=== PATIENT | male | born 1995 | race Caucasian/White ===

== ENCOUNTER 2021-06-24 20:17 | Inpatient (IN) ==
[2021-06-24] MEDS ORDERED: SODIUM CHLORIDE 0.9% 1000ML 1,000 ML IV ONE (20:43)
[2021-06-24] MEDS ORDERED: LORazepam 1 MG/2 ML VIAL IV STA (20:56)
[2021-06-24 21:19] LABS: Basophils # (auto) 0.05 K/uL (0-0.2); Basophils % (auto) 0.4 %; Eosinophils # (auto) 0.01 K/uL (0-0.5); Eosinophils % (auto) 0.1 %; Hematocrit (blood only) 47.7 % (42-52); Hemoglobin 17.1 g/dL (14.0-18.0); Immature Granulocytes # (auto) 0.02 K/uL (0.00-0.02); Immature Granulocytes % (auto) 0.2 %; Lymphocytes # (auto) 2.66 K/uL (1.2-3.4); Lymphocytes % (auto) 23.6 %; Mean Corpuscular Hemoglobin 32.7 pg (25-34); Mean Corpuscular Hgb Conc 35.8 g/dL (32-36); Mean Corpuscular Volume 91.2 fL (80-100); Mean Platelet Volume 9.5 fL (7.4-10.4); Monocytes # (auto) 1.48 K/uL (0.11-0.59); Monocytes % (auto) 13.1 %; Neutrophils # (auto) 7.06 K/uL (1.4-6.5); Neutrophils % (auto) 62.6 %; Platelet Count 359 K/uL (130-400); RDW Coefficient of Variation 12.6 % (11.5-14.5); RDW Standard Deviation 42.5 fL (36.4-46.3); Red Blood Count 5.23 M/uL (4.7-6.1); White Blood Count 11.28 K/uL (4.8-10.8)
[2021-06-24 21:23] LABS: Oxygen Saturation VBG 89.5 %; pH VBG 7.46 (7.36-7.41)
[2021-06-24 21:31] LABS: Appearance Urine Clear (Clear); Bacteria Urine Automated Negative (Negative); Bilirubin Urine Negative (Negative); Blood Urine Negative (Negative); Color Urine Yellow; Epithelial Cell Urine Auto 0-5 /lpf (0-5); Glucose Urine UA Negative (Negative); Ketones Urine 2+ (Negative); Leukocyte Esterase Urine Negative (Negative); Nitrite Urine Negative (Negative); Protein Urine 1+ (Negative); RBC Urine Automated 0-4 /hpf (0-4); Specific Gravity Urine 1.008 (1.000-1.030); Urobilinogen Urine Negative (Negative); WBC Urine Automated 0 /hpf (0-5)
[2021-06-24 21:39] LABS: Albumin Globulin Ratio 1.6 (0.9-2); Albumin Level 5.2 gm/dl (3.4-5.0); BUN Creatinine Ratio 13.6 (10-20); Bilirubin,Total 1.7 mg/dl (0.2-1.0); Calcium 10.3 mg/dl (8.5-10.1); Creatinine Clr Calc Pharmacy 101.8 ml/min; Est GFR (African American) 106.8 ml/min; Est GFR (Non-African American) 92.2 ml/min; Globulin 3.3 gm/dl (2.5-4.0); Potassium 3.5 mmol/L (3.5-5.1); Total Protein 8.5 gm/dl (6.0-8.3)
[2021-06-24 21:46] LABS: Acetaminophen < 3 ug/ml (10-30); Salicylate < 3.0 mg/dl (3.0-30)
[2021-06-24 21:57] LABS: Amphetamines+Metham, Urine Neg (Neg); Barbiturates, Urine Neg (Neg); Benzodiazepine, Urine Neg (Neg); Cocaine, Urine Neg (Neg); MDMA (Ecstacy), Urine Neg (Neg); Methadone, Urine Neg (Neg); Opiate, Urine Neg (Neg); Phencyclidine, Urine Neg (Neg)
--- NOTE | 2021-06-24 22:06 | Emergency Department Note ---
History of Present Illness General Chief complaint: Mental Health Evaluation Stated complaint: MENTAL HEALTH EVAL Time Seen by Provider: 06/24/21 20:32 Source: patient, RN notes reviewed and police History of Present Illness Provider complaint: Mental health evaluation 25-year-old male presents emergency department For mental health evaluation. Patient was brought in by police. Per police the patient has been sleeping outside of a gas station for last 4 days. Staff at the gas station became concerned when he was trying to fill up cups with gasoline. Patient denies any suicidal or homicidal ideations currently. He denies any drug use or alcohol abuse. He denies any trauma. Past Med/Surg History Medical History Anemia Depression No pertinent family history Surgical History No pertinent past surgical history Social History Smoking Status: Current every day smoker Preferred Language: Romansh Feels Safe at Home: Yes Review of Systems Unobtainable due to mental health condition Physical Exam Vital Signs Vital Signs - 24 hr 06/24/21 20:25 06/24/21 21:09 06/24/21 22:40 Temperature 36.9 C Temperature Source Temporal Artery Scan Pulse Rate 130 H Pulse Rate [Left] 113 H Pulse Rhythm [Left] Regular Pulse Strength [Left] Normal Respiratory Rate 16 19 Respiratory Effort / Characteristics Non-Labored Spontaneous Non-Labored Respiratory Depth Normal Normal Respiratory Pattern Regular Regular Blood Pressure 138/95 Blood Pressure [Left Arm] 121/95 Blood Pressure Mean 109 Blood Pressure Mean [Left Arm] 103 Blood Pressure Position [Left Arm] Lying Pulse Oximetry 96 98 Oxygen Delivery Method Room Air Room Air Room Air Sepsis Recent Fever Within 48 Hours No Sepsis New/Unexplained Change in Mental Status N/A Sepsis Action Taken by Nursing No Action Required Physical Exam GENERAL: He is oriented to person, place, and time. He appears well-developed and well-nourished. He does not appear distressed. HENT: Exam performed. - Head: Normocephalic and atraumatic. - Right Ear: External ear normal. No mastoid tenderness. - Left Ear: External ear normal. No mastoid tenderness. - Mouth/Throat: The oropharynx is clear and moist. No trismus in the jaw. No dental abscesses or uvula swelling. No oropharyngeal exudate or tonsillar absces ses. EYES: Conjunctivae and EOM are normal. Pupils are equal, round, and reactive to light. Right eye exhibits no discharge. Left eye exhibits no discharge. No scleral icterus. NECK: Normal range of motion. Neck supple. No JVD present. No spinous process tenderness present. No carotid bruit present. No rigidity. No tracheal deviation and normal range of motion present. No Brudzinski's sign and no Kernig's sign noted. CV: Tachycardic rate, regular rhythm, normal heart sounds and intact distal pul ses. There is no peripheral edema. Palpable radial pulses bue. PULM/CHEST: Effort normal and breath sounds normal. No respiratory distress. No stridor. He has no wheezes. He has no rales. - Chest Wall: He exhibits no tenderness. ABD: The abdomen is soft. Bowel sounds are normal. He has no distension. No mass is present. There is no tenderness. There is no rebound, no guarding, no Montelongo's sign and no tenderness at McBurney's point. Rovsig negative. MUSC/SKEL: Normal range of motion. There is no peripheral edema, tenderness or deformity. LYMPH: No cervical adenopathy. NEURO: He is alert and oriented to person, place, and time. He has normal strength. No cranial nerve deficit or sensory deficit. Coordination and gait normal. GCS eye subscore is 4. GCS verbal subscore is 5. GCS motor subscore is 6. Cerebellar tests wnl. SKIN: Skin is warm and dry. He is not diaphoretic. PSYCH: Tangential thoughts and Pressured speech. No suicidal or homicidal ideation. Course Course 2031: The patient was evaluated in room A8. A complete history and physical exam was performed Cardiac monitoring: An order was placed for continuous cardiac monitoring. The monitor shows a rate of 110 with Sinus tachycardia rhythm 2214: Patient medically cleared. Labs within normal limits imaging within normal limits including CT of the head. Patient placed in observation at this time. 2245: Still awaiting psychiatric evaluation and possible placement. 302 signed by police that brought him in. Case signed out to Dr. Mcleod. Administered Medications Discontinued Medications Sodium Chloride (Nss 1000ml) 1,000 mls @ 999 mls/hr IV .[id number] ONE Stop: 06/24/21 21:43 Last Infusion: 06/24/21 22:21 Dose: 0 mls/hr Documented by: [id number] Admin: 06/24/21 21:18 Dose: 999 mls/hr Documented by: [id number] Lorazepam (Ativan) 1 mg in 2 mls @ 2 mls/min IV NOW STA Stop: 06/24/21 20:57 Last Admin: 06/24/21 21:28 Dose: 2 mls/min Documented by: [id number] Medical Decision Making Laboratory Data Result diagrams: 06/24/21 21:07 06/24/21 21:07 Lab Results 06/24/21 06/24/21 06/24/21 Range/Units 20:35 20:35 21:07 WBC 11.28 H (4.8-10.8) K/uL RBC 5.23 (4.7-6.1) M/uL Hgb 17.1 (14.0-18.0) g/dL Hct 47.7 (42-52) % MCV 91.2 (80-100) fL MCH 32.7 (25-34) pg MCHC 35.8 (32-36) g/dL RDW Std Deviation 42.5 (36.4-46.3) fL RDW Coeff of Dony 12.6 (11.5-14.5) % Plt Count 359 (130-400) K/uL MPV 9.5 (7.4-10.4) fL Immature Gran % (Auto) 0.2 % Neut % (Auto) 62.6 % Lymph % (Auto) 23.6 % [place] % (Auto) 13.1 % Eos % (Auto) 0.1 % Baso % (Auto) 0.4 % Neut # (Auto) 7.06 H (1.4-6.5) K/uL Lymph # (Auto) 2.66 (1.2-3.4) K/uL [place] # (Auto) 1.48 H (0.11-0.59) K/uL Eos # (Auto) 0.01 (0-0.5) K/uL Baso # (Auto) 0.05 (0-0.2) K/uL Immature Gran # (Auto) 0.02 (0.00-0.02) K/uL VBG pH (7.36-7.41) VBG pCO2 (38-50) mmHg VBG pO2 mmHg VBG HCO3 mmol/L VBG O2 Saturation % VBG Base Excess mEq/L Carboxyhemoglobin % THgb Barometric Pressure mm/Hg Sodium (136-145) mmol/L Potassium (3.5-5.1) mmol/L Chloride (98-107) mmol/L Carbon Dioxide (21-32) mmol/L Anion Gap (3-11) BUN (6-23) mg/dl Creatinine (0.6-1.4) mg/dl Est Cr Clr Drug Dosing ml/min Est GFR ( Amer) ml/min Est GFR (Non-Af Amer) ml/min BUN/Creatinine Ratio (10-20) Glucose (70-99(Fasting)) mg/dl Calcium (8.5-10.1) mg/dl Total Bilirubin (0.2-1.0) mg/dl AST (13-39) U/L ALT (7-52) U/L Alkaline Phosphatase (34-104) U/L Total Creatine Kinase (30-223) U/L Total Protein (6.0-8.3) gm/dl Albumin (3.4-5.0) gm/dl Globulin (2.5-4.0) gm/dl Albumin/Globulin Ratio (0.9-2) Lipase (11-82) U/L TSH (0.300-4.500) uIu/ml Urine Color Yellow Urine Appearance Clear (Clear) Urine pH 6.0 (4.5-7.5) Ur Specific [place] 1.008 (1.000-1.030) Urine Protein 1+ H (Negative) Urine Glucose (UA) Negative (Negative) Urine Ketones 2+ H (Negative) Urine Blood Negative (Negative) Urine Nitrite Negative (Negative) Urine Bilirubin Negative (Negative) Urine Urobilinogen Negative (Negative) Ur Leukocyte Esterase Negative (Negative) Urine WBC (Auto) 0 (0-5) /hpf Urine RBC (Auto) 0-4 (0-4) /hpf U Hyaline Cast (Auto) 1-5 (0-5) /lpf U Epithel Cells (Auto) 0-5 (0-5) /lpf Urine Bacteria (Auto) Negative (Negative) Salicylates (3.0-30) mg/dl Urine Opiates Screen Neg (Neg) Ur Methadone, Qual Neg (Neg) Acetaminophen (10-30) ug/ml Urine Barbiturates Neg (Neg) Ur Phencyclidine (PCP) Neg (Neg) U Amphetamin/Meth Scrn Neg (Neg) MDMA (Ecstasy) Screen Neg (Neg) U Benzodiazepines Scrn Neg (Neg) Ur Cocaine Metabolite Neg (Neg) U Marijuana (THC) Screen Pos H (Neg) Ethyl Alcohol mg/dL (<10.0) mg/dl SARS-CoV-2, RNA, NAAT (NEGATIVE) 06/24/21 06/24/21 06/24/21 Range/Units 21:07 21:07 21:07 WBC (4.8-10.8) K/uL RBC (4.7-6.1) M/uL Hgb (14.0-18.0) g/dL Hct (42-52) % MCV (80-100) fL MCH (25-34) pg MCHC (32-36) g/dL RDW Std Deviation (36.4-46.3) fL RDW Coeff of Dony (11.5-14.5) % Plt Count (130-400) K/uL MPV (7.4-10.4) fL Immature Gran % (Auto) % Neut % (Auto) % Lymph % (Auto) % [place] % (Auto) % Eos % (Auto) % Baso % (Auto) % Neut # (Auto) (1.4-6.5) K/uL Lymph # (Auto) (1.2-3.4) K/uL [place] # (Auto) (0.11-0.59) K/uL Eos # (Auto) (0-0.5) K/uL Baso # (Auto) (0-0.2) K/uL Immature Gran # (Auto) (0.00-0.02) K/uL VBG pH 7.46 H (7.36-7.41) VBG pCO2 31 L (38-50) mmHg VBG pO2 53 mmHg VBG HCO3 22 mmol/L VBG O2 Saturation 89.5 % VBG Base Excess -1.0 mEq/L Carboxyhemoglobin % THgb Barometric Pressure 737.0 mm/Hg Sodium 137 (136-145) mmol/L Potassium 3.5 (3.5-5.1) mmol/L Chloride 100 (98-107) mmol/L Carbon Dioxide 21 (21-32) mmol/L Anion Gap 16 H (3-11) BUN 15 (6-23) mg/dl Creatinine 1.10 (0.6-1.4) mg/dl Est Cr Clr Drug Dosing 101.8 ml/min Est GFR ( Amer) 106.8 ml/min Est GFR (Non-Af Amer) 92.2 ml/min BUN/Creatinine Ratio 13.6 (10-20) Glucose 89 (70-99(Fasting)) mg/dl Calcium 10.3 H (8.5-10.1) mg/dl Total Bilirubin 1.7 H (0.2-1.0) mg/dl AST 33 (13-39) U/L ALT 24 (7-52) U/L Alkaline Phosphatase 56 (34-104) U/L Total Creatine Kinase 600 H (30-223) U/L Total Protein 8.5 H (6.0-8.3) gm/dl Albumin 5.2 H (3.4-5.0) gm/dl Globulin 3.3 (2.5-4.0) gm/dl Albumin/Globulin Ratio 1.6 (0.9-2) Lipase 6 L (11-82) U/L TSH (0.300-4.500) uIu/ml Urine Color Urine Appearance (Clear) Urine pH (4.5-7.5) Ur Specific [place] (1.000-1.030) Urine Protein (Negative) Urine Glucose (UA) (Negative) Urine Ketones (Negative) Urine Blood (Negative) Urine Nitrite (Negative) Urine Bilirubin (Negative) Urine Urobilinogen (Negative) Ur Leukocyte Esterase (Negative) Urine WBC (Auto) (0-5) /hpf Urine RBC (Auto) (0-4) /hpf U Hyaline Cast (Auto) (0-5) /lpf U Epithel Cells (Auto) (0-5) /lpf Urine Bacteria (Auto) (Negative) Salicylates (3.0-30) mg/dl Urine Opiates Screen (Neg) Ur Methadone, Qual (Neg) Acetaminophen (10-30) ug/ml Urine Barbiturates (Neg) Ur Phencyclidine (PCP) (Neg) U Amphetamin/Meth Scrn (Neg) MDMA (Ecstasy) Screen (Neg) U Benzodiazepines Scrn (Neg) Ur Cocaine Metabolite (Neg) U Marijuana (THC) Screen (Neg) Ethyl Alcohol mg/dL < 10.0 (<10.0) mg/dl SARS-CoV-2, RNA, NAAT (NEGATIVE) 06/24/21 06/24/21 06/24/21 Range/Units 21:07 21:08 21:08 WBC (4.8-10.8) K/uL RBC (4.7-6.1) M/uL Hgb (14.0-18.0) g/dL Hct (42-52) % MCV (80-100) fL MCH (25-34) pg MCHC (32-36) g/dL RDW Std Deviation (36.4-46.3) fL RDW Coeff of Dony (11.5-14.5) % Plt Count (130-400) K/uL MPV (7.4-10.4) fL Immature Gran % (Auto) % Neut % (Auto) % Lymph % (Auto) % [place] % (Auto) % Eos % (Auto) % Baso % (Auto) % Neut # (Auto) (1.4-6.5) K/uL Lymph # (Auto) (1.2-3.4) K/uL [place] # (Auto) (0.11-0.59) K/uL Eos # (Auto) (0-0.5) K/uL Baso # (Auto) (0-0.2) K/uL Immature Gran # (Auto) (0.00-0.02) K/uL VBG pH (7.36-7.41) VBG pCO2 (38-50) mmHg VBG pO2 mmHg VBG HCO3 mmol/L VBG O2 Saturation % VBG Base Excess mEq/L Carboxyhemoglobin 0.0 % THgb Barometric Pressure mm/Hg Sodium (136-145) mmol/L Potassium (3.5-5.1) mmol/L Chloride (98-107) mmol/L Carbon Dioxide (21-32) mmol/L Anion Gap (3-11) BUN (6-23) mg/dl Creatinine (0.6-1.4) mg/dl Est Cr Clr Drug Dosing ml/min Est GFR ( Amer) ml/min Est GFR (Non-Af Amer) ml/min BUN/Creatinine Ratio (10-20) Glucose (70-99(Fasting)) mg/dl Calcium (8.5-10.1) mg/dl Total Bilirubin (0.2-1.0) mg/dl AST (13-39) U/L ALT (7-52) U/L Alkaline Phosphatase (34-104) U/L Total Creatine Kinase (30-223) U/L Total Protein (6.0-8.3) gm/dl Albumin (3.4-5.0) gm/dl Globulin (2.5-4.0) gm/dl Albumin/Globulin Ratio (0.9-2) Lipase (11-82) U/L TSH 1.325 (0.300-4.500) uIu/ml Urine Color Urine Appearance (Clear) Urine pH (4.5-7.5) Ur Specific [place] (1.000-1.030) Urine Protein (Negative) Urine Glucose (UA) (Negative) Urine Ketones (Negative) Urine Blood (Negative) Urine Nitrite (Negative) Urine Bilirubin (Negative) Urine Urobilinogen (Negative) Ur Leukocyte Esterase (Negative) Urine WBC (Auto) (0-5) /hpf Urine RBC (Auto) (0-4) /hpf U Hyaline Cast (Auto) (0-5) /lpf U Epithel Cells (Auto) (0-5) /lpf Urine Bacteria (Auto) (Negative) Salicylates < 3.0 L (3.0-30) mg/dl Urine Opiates Screen (Neg) Ur Methadone, Qual (Neg) Acetaminophen < 3 L (10-30) ug/ml Urine Barbiturates (Neg) Ur Phencyclidine (PCP) (Neg) U Amphetamin/Meth Scrn (Neg) MDMA (Ecstasy) Screen (Neg) U Benzodiazepines Scrn (Neg) Ur Cocaine Metabolite (Neg) U Marijuana (THC) Screen (Neg) Ethyl Alcohol mg/dL (<10.0) mg/dl SARS-CoV-2, RNA, NAAT (NEGATIVE) 06/24/21 Range/Units Unknown WBC (4.8-10.8) K/uL RBC (4.7-6.1) M/uL Hgb (14.0-18.0) g/dL Hct (42-52) % MCV (80-100) fL MCH (25-34) pg MCHC (32-36) g/dL RDW Std Deviation (36.4-46.3) fL RDW Coeff of Dony (11.5-14.5) % Plt Count (130-400) K/uL MPV (7.4-10.4) fL Immature Gran % (Auto) % Neut % (Auto) % Lymph % (Auto) % [place] % (Auto) % Eos % (Auto) % Baso % (Auto) % Neut # (Auto) (1.4-6.5) K/uL Lymph # (Auto) (1.2-3.4) K/uL [place] # (Auto) (0.11-0.59) K/uL Eos # (Auto) (0-0.5) K/uL Baso # (Auto) (0-0.2) K/uL Immature Gran # (Auto) (0.00-0.02) K/uL VBG pH (7.36-7.41) VBG pCO2 (38-50) mmHg VBG pO2 mmHg VBG HCO3 mmol/L VBG O2 Saturation % VBG Base Excess mEq/L Carboxyhemoglobin % THgb Barometric Pressure mm/Hg Sodium (136-145) mmol/L Potassium (3.5-5.1) mmol/L Chloride (98-107) mmol/L Carbon Dioxide (21-32) mmol/L Anion Gap (3-11) BUN (6-23) mg/dl Creatinine (0.6-1.4) mg/dl Est Cr Clr Drug Dosing ml/min Est GFR ( Amer) ml/min Est GFR (Non-Af Amer) ml/min BUN/Creatinine Ratio (10-20) Glucose (70-99(Fasting)) mg/dl Calcium (8.5-10.1) mg/dl Total Bilirubin (0.2-1.0) mg/dl AST (13-39) U/L ALT (7-52) U/L Alkaline Phosphatase (34-104) U/L Total Creatine Kinase (30-223) U/L Total Protein (6.0-8.3) gm/dl Albumin (3.4-5.0) gm/dl Globulin (2.5-4.0) gm/dl Albumin/Globulin Ratio (0.9-2) Lipase (11-82) U/L TSH (0.300-4.500) uIu/ml Urine Color Urine Appearance (Clear) Urine pH (4.5-7.5) Ur Specific [place] (1.000-1.030) Urine Protein (Negative) Urine Glucose (UA) (Negative) Urine Ketones (Negative) Urine Blood (Negative) Urine Nitrite (Negative) Urine Bilirubin (Negative) Urine Urobilinogen (Negative) Ur Leukocyte Esterase (Negative) Urine WBC (Auto) (0-5) /hpf Urine RBC (Auto) (0-4) /hpf U Hyaline Cast (Auto) (0-5) /lpf U Epithel Cells (Auto) (0-5) /lpf Urine Bacteria (Auto) (Negative) Salicylates (3.0-30) mg/dl Urine Opiates Screen (Neg) Ur Methadone, Qual (Neg) Acetaminophen (10-30) ug/ml Urine Barbiturates (Neg) Ur Phencyclidine (PCP) (Neg) U Amphetamin/Meth Scrn (Neg) MDMA (Ecstasy) Screen (Neg) U Benzodiazepines Scrn (Neg) Ur Cocaine Metabolite (Neg) U Marijuana (THC) Screen (Neg) Ethyl Alcohol mg/dL (<10.0) mg/dl SARS-CoV-2, RNA, NAAT NEGATIVE (NEGATIVE) Imaging Data My Impression: Chest x-ray negative. Airway clear. No pneumothorax. No consolidation. No cardiomegaly or cephalization.. No free air under the diaphragm. No fractures of the skeletal structures. Radiologist's Impression: Preliminary Findings Only See Final Report For Complete Findings CT HEAD: No acute intracranial abnormality identified. Radiologist: Keven Neil M.D. Study ready at 21:46 and initial results transmitted at 22:05 ECG Data Indication: + altered mental status Rate (beats per minute): 113 Rhythm: + sinus tachycardia ECG Intervals/blocks: + Normal QRS, + Normal MS and + Normal QT-c ECG ST segments: + Normal ST segments MDM Narrative Observation note Indication: Psych eval/placement Patient, with depression was first seen at 2032 hrs and the observation time began at 2215 hrs and was necessary in order to have psych evaluation completed . Impression & Plan Altered mental status Discharge Plan Visit Data Chief Complaint: Mental Health Evaluation Stated Complaint: MENTAL HEALTH EVAL Discharge Problem: Altered mental status Patient Disposition: Still a Patient Forms Stand Alone Forms: [facility], Suicide Prevention Resources Referrals Referrals: PCP,NO [Primary Care Provider] -
--- NOTE | 2021-06-25 01:02 | Emergency Department Note ---
ED Visit Note Patient was signed out to me by Dr. Sahu at 2300, he is pending placement for inpatient psychiatric care for erratic behavior, likely homelessness, inability to care for self, 302 was filed by police. Patient has not required any acute interventions during my shift. Case was signed out to Dr. Leija at the end of my shift pending ongoing bed search/placement. . : Altered mental status Qualifiers: Altered mental status type: unspecified Qualified Code(s): R41.82 - Altered mental status, unspecified
--- NOTE | 2021-06-25 02:51 | Emergency Department Note ---
ED Visit Note This case was signed out to me at change of shift. The patient is here on a 302. He has not slept for days and received Ativan. He has been difficult to arouse and has not yet been assessed by the ED psychiatric outsole caser. He continues to sleep overnight and remains hemodynamically stable. He will need assessed in the morning by the ED psychiatric outsole caser. The case will be signed out to Dr. Mcarthur at shift change. . : Altered mental status Qualifiers: Altered mental status type: unspecified Qualified Code(s): R41.82 - Altered mental status, unspecified
[2021-06-25] MEDS ORDERED: NICOTINE POLACRILEX 2 MG GUM MT ONE (07:09)
--- NOTE | 2021-06-25 07:21 | CT Scan Report ---
CT SCAN OF THE BRAIN WITHOUT IV CONTRAST CLINICAL HISTORY: Change in mental status. COMPARISON STUDY: No priors. TECHNIQUE: Unenhanced axial CT scan of the brain is performed from the vertex to the skull base. A d ose lowering technique was utilized adhering to the principles of ALARA. The patient was scanned twic e due to motion artifact. CT DOSE: 1228.53 mGy.cm FINDINGS: Brain parenchyma: The brain parenchyma is normal in appearance. There is no hemorrhage, mass effect, or evidence of acute territorial ischemia by CT criteria. Hill-white matter differentiation is preser nabor. No extra-axial fluid collection is seen. Ventricles, sulci, cisterns: Normal in configuration. Intracranial vasculature: The visualized intracranial vasculature at the skull base is normal in appe arance. Calvarium: Unremarkable. Sinuses and mastoids: The visualized paranasal sinuses are clear. The mastoid air cells are well pneu matized. Orbits: The bony orbits are grossly intact. IMPRESSION: No acute intracranial abnormality is identified. ACT 112: Negative or not required by law. Electronically signed by: Zak Rodriguez M.D. 06/25/2021 7:20 AM
--- NOTE | 2021-06-25 07:29 | Emergency Department Note ---
ED Visit Note Received this patient in signout. See prior notes for full details. Patient evidently had been staying outside of a gas station originally from the [place] area and began to exhibit some odd behavior. Evidently there are some concerns he was trying to fill up bottles/cups with gasoline. Police were involved and he was brought here for further evaluation. A 302 box B commitment form has been completed for the patient. Patient slept throughout the night after receiving some Ativan. Patient in room awake this morning coloring. Evidently told the rn field case manager that he has an illness inside of him that he is performing surgery on himself to try to remove. Has disorganized thoughts and appears to be somewhat responding to external stimuli in the room. Again very disorganized. Occasionally burst out in tears for me. Discussed with him utilizing medication such as Ativan or antipsychotic such as Zyprexa to help with some symptoms but he declined at this time as he states he does not want a be "tranquilizer ". Patient is being assessed this morning by our psychiatric rn field case manager with bed search to begin. Patient accepted 3 S. for further inpatient care. . : Altered mental status Qualifiers: Altered mental status type: unspecified Qualified Code(s): R41.82 - Altered mental status, unspecified
--- NOTE | 2021-06-25 07:44 | XRay Report ---
SINGLE VIEW CHEST CLINICAL HISTORY: Change in mental status. FINDINGS: An AP, portable, upright chest radiograph is obtained. No prior studies are available for c omparison at the time of dictation. The cardiomediastinal silhouette is unremarkable. There is mild bibasilar atelectasis. The lungs and pleural spaces are otherwise clear. No pneumothorax is seen. The bony thorax is grossly intact. IMPRESSION: No active disease in the chest. ACT 112: Negative or not required by law. Electronically signed by: Zak Rodriguez M.D. 06/25/2021 7:42 AM
[2021-06-25] MEDS ORDERED: hydrOXYzine HCl 25 MG TAB PO PRN ×2 (10:23)
[2021-06-25] MEDS ORDERED: BISMUTH SUBSALICYLATE LIQD 236 ML PO PRN (10:23)
[2021-06-25] MEDS ORDERED: ACETAMINOPHEN 325 MG TAB PO PRN (10:23)
[2021-06-25] MEDS ORDERED: MAGNESIUM HYDROXIDE SUSP 30 ML UDC PO PRN (10:23)
[2021-06-25] MEDS ORDERED: ALUMINUM/MAGNESIUM SUSP 30 ML UDC PO PRN (10:23)
[2021-06-25] MEDS ORDERED: SODIUM CHLORIDE 0.65% NA SOLN 45 ML (OCEAN) PRN (10:23)
[2021-06-25] MEDS ORDERED: BENZTROPINE MESYLATE 1 MG TAB PO PRN (10:25)
[2021-06-25] MEDS: haloperidoL 5 MG TAB PO PRN ×2 (11:32→17:21)
[2021-06-25] MEDS: LORazepam 1 MG TAB PO PRN ×2 (11:32→17:21)
--- NOTE | 2021-06-25 12:28 | History & Physical ---
Date of Service June 25, 2021 Impression / Recommendations Impression 25 yo male, very limited historian admit for disorganized/bizarre behavior while living out of his car at a local gas station. He presents as paranoid and likely hallucinating and is +for MJ. (1) Psychotic disorder: The patient was admitted to the [facility] ([facility] unit) on q15 min checks (behavioral with suicide precautions) for safety. The patient will participate in group, recreational, and milieu therapies and will be offered additional individual and family sessions as clinically appropriate. A MNPR is required given his level of paranoia and disorganization. Prn Haldol 5 mg and Ativan 1 mg are ordered and I am petitioning for a 303 hearing tomorrow as it is anticipated that he will require medications over objection if doesn't accept PO. Will offer Zyprexa zydus 10 mg this pm. He is not able to understand risks/benefits at this time. Will attempt fasting metabolic labs in the am. Inventory Assets Strengths: cannot assess, has a car and may be college educated Needs: increase insight into condition, outpatient providers and likely REZA. Risk Factors Assessment Male: Yes : No Do You Have Access To A Gun?: No (belongings secured by police) Protective Factors Assessment : No Responsible for Young Children: No Employed: No Psychiatric History Identifying Data MAK BANKS is a 25-year-old M reportedly from [place], [place], very poor historian due to disorganized psychosis, and was admitted on 06/25/21 10:23 on a 302 involuntary commitment. Chief Complaint laughing inappropriately at tea packets History of Present Illness The patient presented to the ED with tangential thoughts alternating with tearfulness and anxiety. He is not able to answer now as decompensated on transition to the unit, paranoid and refusing questions, took Haldol and Ativan with much prompting. He reported driving around the country between [place] and [place]. He has been living out of his car and sleeping at gas stations. He appeared to be responding to internal stimuli, looking off to the side while talking. Police were called to a convenience store in [place] as attempting to take drinks from the gas station to fill them up to gasoline. In the ED he would pace and point to the floor. He apparently endorsed being in [place] and [place]. He was somewhat grandiose talking about seeking a masters degrees at [employer]. He endorsed decreased appetite and poor sleep. It is unclear if he is having true anxiety or just experiencing restlessness. Urine tox was positive for MJ and he may have used other substances 5 years ago. Past Psychiatric History Current Psychiatric Diagnosis: Psychotic Disorder Outpatient Services: no known Do You Have Access To A Gun?: No (belongings secured by police) Describe Attempts in the Past: Became tearful when asked, but would not discuss further Past Medication Trials: unclear Allergies Allergy/AdvReac Type Severity Reaction Status Date / Time No Known Allergies Allergy Unverified 06/25/21 07:51 Home Medications Medication Instructions Recorded Confirmed Type No Known Home Medications 06/25/21 06/25/21 History Family History Family History of: Doesn't Know Alcohol History Hx of Alcohol Use Over the Past 12 Months: No Smoking Use Have You Smoked or Used Tobacco Products in the Last 30 Days: Yes tobacco type: cigarettes Smoking Status: Light tobacco smoker Smoking packs per day: 0 Substance History Hx of Prescription Med Misuse Over the Past 12 Months: No Hx of Over the Counter Med Misuse Over the Past 12 Months: No Hx of Inhalent Misuse Over the Past 12 Months: No Hx of Organic Substance Use Over the Past 12 Months: No (Hx of experiementing, would not discuss further) Hx of Illegal Substances/Street Drug Use Over Past 12 Months: No (Hx of experiementing, would not discuss further) Problems as a Result of Past Substance Use: None Identified Problems as a Result of Past Substance Use Comments: Police report drug offenses, but no longer in police custody Personal History Living Arrangements: Homeless Highest Grade Completed: College (reportedly a BS in environmental science) Highest Grade Completed Comment: Unknown Employment Status: Unemployed Marital Status: Single Number Of Children: Unknown Beliefs That Will Affect Care: None Legal Problems Comment: Unknown - police upon drop off in the ED report hx of drug offenses Patient History Medical History Anemia Depression No pertinent family history Surgical History No pertinent past surgical history Social History Smoking Status: Light tobacco smoker Preferred Language: Tamazight Communication Ability: Effective Gaming Surveillance Observer Required: No Beliefs That Will Affect Care: None Feels Safe at Home: Yes Assistive Devices: None Review of Systems Review of Systems: Unobtainable due to cognitive status Physical Exam Psychiatric: Orientation: alert, oriented to person and + guarded Eye Contact: + poor eye contact Motor Behavior: no abnormal motor movements Speech: + abnormal rate/rhythm/volume of speech Affect: + labile affect Mood: + anxious mood and + irritable mood Thought Process: + tangential thought process and + incoherent thought process Thought Content: + paranoid won't answer won't answer unclear if responding to internal stimuli Cognition: + recent memory not intact and + attention not intact Insight: + severely impaired insight Judgement: + severely impaired judgement Vital Signs (Past 24 Hours): Last Vital Signs Temp 36.9 C 06/24/21 20:25 Pulse 132 H 06/25/21 07:17 Resp 20 06/25/21 07:17 BP 119/96 06/25/21 07:17 Pulse Ox 96 06/25/21 07:17 Exam Statement: A physical exam was performed in the ED by Dr. Sahu for the purposes of medical clearance. I accept that physical as correct and adequate for the purposes of the inpatient physical exam. Results & Data ([facility]) Laboratory Results Laboratory Results - last 24 hr 06/24/21 06/24/21 06/24/21 20:35 20:35 20:35 WBC RBC Hgb Hct MCV MCH MCHC RDW Std Deviation RDW Coeff of Dony Plt Count MPV Immature Gran % (Auto) Neut % (Auto) Lymph % (Auto) [place] % (Auto) Eos % (Auto) Baso % (Auto) Neut # (Auto) Lymph # (Auto) [place] # (Auto) Eos # (Auto) Baso # (Auto) Immature Gran # (Auto) VBG pH VBG pCO2 VBG pO2 VBG HCO3 VBG O2 Saturation VBG Base Excess Carboxyhemoglobin Barometric Pressure Sodium Potassium Chloride Carbon Dioxide Anion Gap BUN Creatinine Est Cr Clr Drug Dosing Est GFR ( Amer) Est GFR (Non-Af Amer) BUN/Creatinine Ratio Glucose Calcium Total Bilirubin AST ALT Alkaline Phosphatase Total Creatine Kinase Total Protein Albumin Globulin Albumin/Globulin Ratio Lipase TSH Urine Color Yellow Urine Appearance Clear Urine pH 6.0 Ur Specific Crane 1.008 Urine Protein 1+ H Urine Glucose (UA) Negative Urine Ketones 2+ H Urine Blood Negative Urine Nitrite Negative Urine Bilirubin Negative Urine Urobilinogen Negative Ur Leukocyte Esterase Negative Urine WBC (Auto) 0 Urine RBC (Auto) 0-4 U Hyaline Cast (Auto) 1-5 U Epithel Cells (Auto) 0-5 Urine Bacteria (Auto) Negative Salicylates Urine Opiates Screen Neg Ur Methadone, Qual Neg Acetaminophen Urine Barbiturates Neg Ur Phencyclidine (PCP) Neg U Amphetamin/Meth Scrn Neg MDMA (Ecstasy) Screen Neg U Benzodiazepines Scrn Neg Ur Cocaine Metabolite Neg U Marijuana (THC) Screen Pos H U Marijuana THC Carboxy Pending Drug Screen Comment Pending Ethyl Alcohol mg/dL SARS-CoV-2, RNA, NAAT 06/24/21 06/24/21 06/24/21 21:07 21:07 21:07 WBC 11.28 H RBC 5.23 Hgb 17.1 Hct 47.7 MCV 91.2 MCH 32.7 MCHC 35.8 RDW Std Deviation 42.5 RDW Coeff of Dony 12.6 Plt Count 359 MPV 9.5 Immature Gran % (Auto) 0.2 Neut % (Auto) 62.6 Lymph % (Auto) 23.6 [place] % (Auto) 13.1 Eos % (Auto) 0.1 Baso % (Auto) 0.4 Neut # (Auto) 7.06 H Lymph # (Auto) 2.66 [place] # (Auto) 1.48 H Eos # (Auto) 0.01 Baso # (Auto) 0.05 Immature Gran # (Auto) 0.02 VBG pH VBG pCO2 VBG pO2 VBG HCO3 VBG O2 Saturation VBG Base Excess Carboxyhemoglobin Barometric Pressure Sodium 137 Potassium 3.5 Chloride 100 Carbon Dioxide 21 Anion Gap 16 H BUN 15 Creatinine 1.10 Est Cr Clr Drug Dosing 101.8 Est GFR ( Amer) 106.8 Est GFR (Non-Af Amer) 92.2 BUN/Creatinine Ratio 13.6 Glucose 89 Calcium 10.3 H Total Bilirubin 1.7 H AST 33 ALT 24 Alkaline Phosphatase 56 Total Creatine Kinase 600 H Total Protein 8.5 H Albumin 5.2 H Globulin 3.3 Albumin/Globulin Ratio 1.6 Lipase 6 L TSH Urine Color Urine Appearance Urine pH Ur Specific [place]ane Urine Protein Urine Glucose (UA) Urine Ketones Urine Blood Urine Nitrite Urine Bilirubin Urine Urobilinogen Ur Leukocyte Esterase Urine WBC (Auto) Urine RBC (Auto) U Hyaline Cast (Auto) U Epithel Cells (Auto) Urine Bacteria (Auto) Salicylates Urine Opiates Screen Ur Methadone, Qual Acetaminophen Urine Barbiturates Ur Phencyclidine (PCP) U Amphetamin/Meth Scrn MDMA (Ecstasy) Screen U Benzodiazepines Scrn Ur Cocaine Metabolite U Marijuana (THC) Screen U Marijuana THC Carboxy Drug Screen Comment Ethyl Alcohol mg/dL < 10.0 SARS-CoV-2, RNA, NAAT 06/24/21 06/24/21 06/24/21 21:07 21:07 21:08 WBC RBC Hgb Hct MCV MCH MCHC RDW Std Deviation RDW Coeff of Dony Plt Count MPV Immature Gran % (Auto) Neut % (Auto) Lymph % (Auto) [place] % (Auto) Eos % (Auto) Baso % (Auto) Neut # (Auto) Lymph # (Auto) [place] # (Auto) Eos # (Auto) Baso # (Auto) Immature Gran # (Auto) VBG pH 7.46 H VBG pCO2 31 L VBG pO2 53 VBG HCO3 22 VBG O2 Saturation 89.5 VBG Base Excess -1.0 Carboxyhemoglobin 0.0 Barometric Pressure 737.0 Sodium Potassium Chloride Carbon Dioxide Anion Gap BUN Creatinine Est Cr Clr Drug Dosing Est GFR ( Amer) Est GFR (Non-Af Amer) BUN/Creatinine Ratio Glucose Calcium Total Bilirubin AST ALT Alkaline Phosphatase Total Creatine Kinase Total Protein Albumin Globulin Albumin/Globulin Ratio Lipase TSH 1.325 Urine Color Urine Appearance Urine pH Ur Specific Crane Urine Protein Urine Glucose (UA) Urine Ketones Urine Blood Urine Nitrite Urine Bilirubin Urine Urobilinogen Ur Leukocyte Esterase Urine WBC (Auto) Urine RBC (Auto) U Hyaline Cast (Auto) U Epithel Cells (Auto) Urine Bacteria (Auto) Salicylates Urine Opiates Screen Ur Methadone, Qual Acetaminophen Urine Barbiturates Ur Phencyclidine (PCP) U Amphetamin/Meth Scrn MDMA (Ecstasy) Screen U Benzodiazepines Scrn Ur Cocaine Metabolite U Marijuana (THC) Screen U Marijuana THC Carboxy Drug Screen Comment Ethyl Alcohol mg/dL SARS-CoV-2, RNA, NAAT 06/24/21 06/24/21 21:08 Unknown WBC RBC Hgb Hct MCV MCH MCHC RDW Std Deviation RDW Coeff of Dony Plt Count MPV Immature Gran % (Auto) Neut % (Auto) Lymph % (Auto) [place] % (Auto) Eos % (Auto) Baso % (Auto) Neut # (Auto) Lymph # (Auto) [place] # (Auto) Eos # (Auto) Baso # (Auto) Immature Gran # (Auto) VBG pH VBG pCO2 VBG pO2 VBG HCO3 VBG O2 Saturation VBG Base Excess Carboxyhemoglobin Barometric Pressure Sodium Potassium Chloride Carbon Dioxide Anion Gap BUN Creatinine Est Cr Clr Drug Dosing Est GFR ( Amer) Est GFR (Non-Af Amer) BUN/Creatinine Ratio Glucose Calcium Total Bilirubin AST ALT Alkaline Phosphatase Total Creatine Kinase Total Protein Albumin Globulin Albumin/Globulin Ratio Lipase TSH Urine Color Urine Appearance Urine pH Ur Specific [place]ane Urine Protein Urine Glucose (UA) Urine Ketones Urine Blood Urine Nitrite Urine Bilirubin Urine Urobilinogen Ur Leukocyte Esterase Urine WBC (Auto) Urine RBC (Auto) U Hyaline Cast (Auto) U Epithel Cells (Auto) Urine Bacteria (Auto) Salicylates < 3.0 L Urine Opiates Screen Ur Methadone, Qual Acetaminophen < 3 L Urine Barbiturates Ur Phencyclidine (PCP) U Amphetamin/Meth Scrn MDMA (Ecstasy) Screen U Benzodiazepines Scrn Ur Cocaine Metabolite U Marijuana (THC) Screen U Marijuana THC Carboxy Drug Screen Comment Ethyl Alcohol mg/dL SARS-CoV-2, RNA, NAAT NEGATIVE Current Inpatient Medications Current Inpatient Medications: Current Inpatient Medications Acetaminophen (Acetaminophen 325 Mg Tab) 650 mg PO Q4H PRN PRN Reason: Headache or Minor Fever Stop: 07/25/21 10:22 Al Hydrox/Mg Hydrox/Simethicone (Aluminum/Magnesium Susp 30 Ml Udc) 30 ml PO Q4H PRN PRN Reason: GI Upset Stop: 07/25/21 10:22 Benztropine Mesylate (Benztropine Mesylate 1 Mg Tab) 1 mg PO Q6 PRN PRN Reason: EPS Stop: 07/25/21 10:24 Bismuth Subsalicylate (Bismuth Subsalicylate Liqd 236 Ml) 15 ml PO PRN PRN PRN Reason: Loose Stool Stop: 07/25/21 10:22 Haloperidol (Haloperidol 5 Mg Tab) 5 mg PO Q6 PRN PRN Reason: Anxiety/Agitation Stop: 07/25/21 10:24 Last Admin: 06/25/21 11:32 Dose: 5 mg Documented by: Hydroxyzine HCl (Hydroxyzine Hcl 25 Mg Tab) 50 mg PO HSZ PRN PRN Reason: Insomnia Stop: 07/25/21 10:22 Hydroxyzine HCl (Hydroxyzine Hcl 25 Mg Tab) 25 mg PO Q4H PRN PRN Reason: Anxiety Stop: 07/25/21 10:22 Lorazepam (Lorazepam 1 Mg Tab) 1 mg PO Q6 PRN PRN Reason: Anxiety/Agitation Stop: 07/25/21 10:24 Last Admin: 06/25/21 11:32 Dose: 1 mg Documented by: Magnesium Hydroxide (Magnesium Hydroxide Susp 30 Ml Udc) 30 ml PO DAILY PRN PRN Reason: Constipation Stop: 07/25/21 10:22 Sodium Chloride (Sodium Chloride 0.65% Na Soln 45 Ml ([place])) 1 - 2 sprays NA PRN PRN PRN Reason: Nasal Dryness/Congestion Stop: 07/25/21 10:22
[2021-06-25] MEDS ORDERED: LORazepam 2 MG/ML VIAL (IM USE) IM PRN (15:31)
[2021-06-25] MEDS ORDERED: BENZTROPINE MESYLATE 1 MG/ML 2 ML AMP IM PRN (15:31)
[2021-06-25] MEDS ORDERED: HALOPERIDOL LACTATE 5 MG/ML 1 ML VIAL IM PRN (15:31)
--- NOTE | 2021-06-25 22:25 | Electrocardiogram Report ---
Test Reason : Blood Pressure : / mmHG Vent. Rate : 113 BPM Atrial Rate : 113 BPM P-R Int : 114 ms QRS Dur : 084 ms QT Int : 312 ms P-R-T Axes : 031 003 045 degrees QTc Int : 427 ms Poor data quality, interpretation may be adversely affected Sinus tachycardia Possible Left atrial enlargement RSR' or QR pattern in V1 suggests right ventricular conduction delay No previous ECGs available Confirmed by Aydin Stapleton ([id number]) on 06/25/2021 10:25:37 PM Referred By: REFERRED SELF Confirmed By:Aydin Stapleton
[2021-06-26] MEDS: LORazepam 1 MG TAB PO PRN ×2 (11:14→18:19)
[2021-06-26] MEDS: haloperidoL 5 MG TAB PO PRN ×2 (11:14→18:19)
--- NOTE | 2021-06-26 13:03 | Psychiatric Progress Note ---
Date of Service June 26, 2021 Impression / Recommendations Impression 25 yo male, very limited historian admit for disorganized/bizarre behavior while living out of his car [place] local gas station. He presents as paranoid and likely hallucinating and tested +for MJ. He has a hx of depression and drug use with subsequent psychotic symptoms in the past per mother. 06/26/21--improving (1) Psychotic disorder: 06/26/21: continue Zyprexa trial with prns as ordered as significant improvement within 24 hours on medication. >35 min spent in testimony for 303 hearing/prep aside from his examination and coordination with treatment team. It is my opinion that if he were to refuse medications they should be given over objection as without treatment for his psychotic illness he is at significant risk of or serious disability within the next [address] Lemons to provide second opinion if needed. 06/25/21: The patient was admitted to the [facility] ([facility] mental health unit) on q15 min checks (behavioral with suicide precautions) for safety. The patient will participate in group, recreational, and milieu therapies and will be offered additional individual and family sessions as clinically appropriate. A MNPR is required given his level of paranoia and disorganization. Prn Haldol 5 mg and Ativan 1 mg are ordered and I am petitioning for a 303 hearing tomorrow as it is anticipated that he will require medications over objection if doesn't accept PO. Will offer Zyprexa zydus 10 mg this pm. He is not able to understand risks/benefits at this time. Will attempt fasting metabolic labs in the am. Inventory Assets Strengths: cannot assess, has a car and may be college educated Needs: increase insight into condition, outpatient providers and likely REZA. Risk Factors Assessment Male: Yes : No Do You Have Access To A Gun?: No (belongings secured by police) Protective Factors Assessment : No Responsible for Young Children: No Employed: No Interval History Identifying Information MAK BANKS is a 25-year-old M reportedly from [place], [place], very poor historian due to disorganized psychosis, and was admitted on 06/25/21 10:23 on a 302 involuntary commitment. 303 granted 06/26/21. Chief Complaint "I guess I'll listen in"--referring to his hearing Review of Systems Sleep Information Total Hours of Sleep: 6.5 Sleep Comments: pt on q-15 minute checks Meal Information Percent Meal Consumed - Lunch: 0 Percent Meal Consumed - Dinner: 25 Subjective Subjective Patient was seen & assessed and interval progress reviewed with treatment team. The patient ate 25% of 1 meal yesterday, accepted 2 doses of Haldol/Ativan prn and was compliant with hs Zyprexa as ordered. He slept and had to be awakened for examination prior to hearing. He continues with thought blocking but did allow staff to contact his mother who was thankful he was safe as no contact since he left her home in [place] in early May. He reportedly told staff he came to [place] as has "magda" in the name which is similar to [place] where his mother is from (Mother is [place]). 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 He has gone from non sensical in conversation to being able to go to brief groups and rate mood. Physical Exam Psychiatric Orientation: alert, oriented to person and + guarded Eye Contact: + poor eye contact Motor Behavior: no abnormal motor movements Speech: + abnormal rate/rhythm/volume of speech Affect: + blunted affect Mood: no anxious mood and no irritable mood Thought Process: + thought blocking and + tangential thought process Thought Content: + paranoid Cognition: + recent memory not intact and + attention not intact Insight: + severely impaired insight Judgement: + severely impaired judgement Vital Signs (Past 24 Hours) Last Vital Signs Temp 36.4 C L 06/26/21 06:28 Pulse 117 H 06/26/21 06:28 Resp 16 06/26/21 06:28 BP 116/66 06/26/21 06:28 Pulse Ox 96 06/25/21 07:17 Results & Data ([facility]) Current Inpatient Medications Current Inpatient Medications: Current Inpatient Medications Acetaminophen (Acetaminophen 325 Mg Tab) 650 mg PO Q4H PRN PRN Reason: Headache or Minor Fever Stop: 07/25/21 10:22 Al Hydrox/Mg Hydrox/Simethicone (Aluminum/Magnesium Susp 30 Ml Udc) 30 ml PO Q4H PRN PRN Reason: GI Upset Stop: 07/25/21 10:22 Benztropine Mesylate (Benztropine Mesylate 1 Mg Tab) 1 mg PO Q6 PRN PRN Reason: EPS Stop: 07/25/21 10:24 Benztropine Mesylate (Benztropine Mesylate 1 Mg/Ml 2 Ml Amp) 1 mg IM Q6 PRN PRN Reason: with Haldol IM Stop: 07/25/21 15:30 Bismuth Subsalicylate (Bismuth Subsalicylate Liqd 236 Ml) 15 ml PO PRN PRN PRN Reason: Loose Stool Stop: 07/25/21 10:22 Haloperidol (Haloperidol 5 Mg Tab) 5 mg PO Q6 PRN PRN Reason: Anxiety/Agitation Stop: 07/25/21 10:24 Last Admin: 06/26/21 11:14 Dose: 5 mg Documented by: Haloperidol Lactate (Haloperidol Lactate 5 Mg/Ml 1 Ml Vial) 10 mg IM Q6 PRN PRN Reason: Agitation Stop: 07/25/21 15:30 Hydroxyzine HCl (Hydroxyzine Hcl 25 Mg Tab) 50 mg PO HSZ PRN PRN Reason: Insomnia Stop: 07/25/21 10:22 Hydroxyzine HCl (Hydroxyzine Hcl 25 Mg Tab) 25 mg PO Q4H PRN PRN Reason: Anxiety Stop: 07/25/21 10:22 Lorazepam (Lorazepam 1 Mg Tab) 1 mg PO Q6 PRN PRN Reason: Anxiety/Agitation Stop: 07/25/21 10:24 Last Admin: 06/26/21 11:14 Dose: 1 mg Documented by: Lorazepam (Lorazepam 2 Mg/Ml Vial (Im Use)) 2 mg IM Q6 PRN PRN Reason: Agitation Stop: 07/25/21 15:30 Magnesium Hydroxide (Magnesium Hydroxide Susp 30 Ml Udc) 30 ml PO DAILY PRN PRN Reason: Constipation Stop: 07/25/21 10:22 Olanzapine (Olanzapine Zydis 10 Mg Orally Dis. Tab) 10 mg PO HS STEFFEN Stop: 07/25/21 21:59 Last Admin: 06/25/21 20:23 Dose: 10 mg Documented by: Sodium Chloride (Sodium Chloride 0.65% Na Soln 45 Ml ([place])) 1 - 2 sprays NA PRN PRN PRN Reason: Nasal Dryness/Congestion Stop: 07/25/21 10:22
[2021-06-27 07:47] LABS: Marijuana Quant, GCMS Urine 422 ng/mL (<5)
[2021-06-27] MEDS ORDERED: OLANZapine ZYDIS 5 MG ORALLY DIS. TAB PO PRN (09:13)
[2021-06-27] MEDS ORDERED: PROPRANOLOL HCL 10 MG TAB PO PRN (09:14)
[2021-06-27 10:06] LABS: Chol HDL Ratio 4.5 (0-5)
--- NOTE | 2021-06-27 14:30 | Psychiatric Progress Note ---
Date of Service June 27, 2021 Impression / Recommendations Impression 25 yo man with a history of multiple prior psychiatric admission for psychosis admitted for disorganized/bizarre behavior while living [place] of his [place]. He presents as paranoid and likely hallucinating and tested +for MJ. He has a hx of depression and drug use with subsequent psychotic symptoms in the past. Currently on 303 commitment. 06/27/21--continues to present with significant psychosis and akathisia likely in setting of haldol. Discussed medication options in detail and he is agreeing to take risperidone. Will cross-taper from olanzapine to risperidone. Discussed risks of risperidone including but not limited to metabolic, movement (TD), and prolactin changes. Additional benefit that risperidone could be converted to REZA in future. Fasting labwork reviewed and all wnl with exception of slightly elevated cholesterol (205). (1) Psychotic disorder: 06/27/21: Start cross-taper from zyprexa to risperidone. If he refuses po medication will consider need for medication over objection. 06/26/21: continue Zyprexa trial with prns as ordered as significant improvement within 24 hours on medication. >35 min spent in testimony for 303 hearing/prep aside from his examination and coordination with treatment team. It is my opinion that if he were to refuse medications they should be given over objection as without treatment for his psychotic illness he is at significant risk of or serious disability within the next [address] Lemons to provide second opinion if needed. 06/25/21: The patient was admitted to the [facility] ([facility] mental health unit) on q15 min checks (behavioral with suicide precautions) for safety. The patient will participate in group, recreational, and milieu therapies and will be offered additional individual and family sessions as clinically appropriate. A MNPR is required given his level of paranoia and disorganization. Prn Haldol 5 mg and Ativan 1 mg are ordered and I am petitioning for a 303 hearing tomorrow as it is anticipated that he will require medications over objection if doesn't accept PO. Will offer Zyprexa zydus 10 mg this pm. He is not able to understand risks/benefits at this time. Will attempt fasting metabolic labs in the am. Inventory Assets Strengths: cannot assess, has a car and may be college educated Needs: increase insight into condition, outpatient providers and likely REZA. Risk Factors Assessment Male: Yes : No Do You Have Access To A Gun?: No (belongings secured by police) Protective Factors Assessment : No Responsible for Young Children: No Employed: No Interval History Identifying Information MAK BANKS is a 25-year-old M reportedly from [place], [place], very poor historian due to disorganized psychosis, and was admitted on 06/25/21 10:23 on a 302 involuntary commitment. 303 granted 06/26/21. Chief Complaint "It's hard for me to do that". Review of Systems Sleep Information Total Hours of Sleep: 10 Sleep Comments: pt on q-15 minute checks Meal Information Percent Meal Consumed - Breakfast: 100 Percent Meal Consumed - Lunch: 50 Percent Meal Consumed - Dinner: 100 Subjective Subjective Patient was seen & assessed and interval progress reviewed with treatment team nursing and social work. Continues to present with significant psychosis, responding to internal stimuli, disorganized and this morning presented as restless concerning for akathisia in setting of multiple recent doses of haldol. He struggled to describe his history of mood symptoms and psychosis but later with support from [facility] counselor was able to create a timeline consistent with multiple episodes of psychosis in the past resulting in hospitalizations up to 10 days in [place] and [place]. He reports improved stability in the past when he was not using substances. Today he endorses restlessness and we review other medications that may have less risk for akathisia. He states dislike of olanzapine due to limited benefit, weight gain and confusion when he took it in the past. Physical Exam Psychiatric Orientation: alert, oriented to person and + guarded Eye Contact: + poor eye contact Motor Behavior: no abnormal motor movements Speech: + abnormal rate/rhythm/volume of speech Affect: + blunted affect Mood: + depressed mood and + anxious mood Thought Process: + thought blocking, + tangential thought process and + incoherent thought process Thought Content: + paranoid Cognition: + recent memory not intact and + attention not intact Insight: + severely impaired insight Judgement: + severely impaired judgement Vital Signs (Past 24 Hours) Last Vital Signs Temp 36.4 C L 06/27/21 06:47 Pulse 85 06/27/21 11:23 Resp 18 06/27/21 06:48 BP 135/92 06/27/21 11:23 Pulse Ox 96 06/25/21 07:17 Results & Data ([facility]) Laboratory Results Laboratory Results - last 24 hr 06/24/21 06/27/21 20:35 09:37 Fasting Glucose 89 Triglycerides 114 Cholesterol 205 H LDL Cholesterol, Calc 136 VLDL Cholesterol, Calc 23 HDL Cholesterol 46 Cholesterol/HDL Ratio 4.5 U Marijuana THC Carboxy 422 H Drug Screen Comment SEE NOTE Current Inpatient Medications Current Inpatient Medications: Current Inpatient Medications Acetaminophen (Acetaminophen 325 Mg Tab) 650 mg PO Q4H PRN PRN Reason: Headache or Minor Fever Stop: 07/25/21 10:22 Al Hydrox/Mg Hydrox/Simethicone (Aluminum/Magnesium Susp 30 Ml Udc) 30 ml PO Q4H PRN PRN Reason: GI Upset Stop: 07/25/21 10:22 Benztropine Mesylate (Benztropine Mesylate 1 Mg Tab) 1 mg PO Q6 PRN PRN Reason: EPS Stop: 07/25/21 10:24 Last Admin: 06/27/21 08:42 Dose: 1 mg Documented by: Benztropine Mesylate (Benztropine Mesylate 1 Mg/Ml 2 Ml Amp) 1 mg IM Q6 PRN PRN Reason: with Haldol IM Stop: 07/25/21 15:30 Bismuth Subsalicylate (Bismuth Subsalicylate Liqd 236 Ml) 15 ml PO PRN PRN PRN Reason: Loose Stool Stop: 07/25/21 10:22 Haloperidol Lactate (Haloperidol Lactate 5 Mg/Ml 1 Ml Vial) 10 mg IM Q6 PRN PRN Reason: Agitation Stop: 07/25/21 15:30 Hydroxyzine HCl (Hydroxyzine Hcl 25 Mg Tab) 50 mg PO HSZ PRN PRN Reason: Insomnia Stop: 07/25/21 10:22 Hydroxyzine HCl (Hydroxyzine Hcl 25 Mg Tab) 25 mg PO Q4H PRN PRN Reason: Anxiety Stop: 07/25/21 10:22 Lorazepam (Lorazepam 1 Mg Tab) 1 mg PO Q6 PRN PRN Reason: Anxiety/Agitation Stop: 07/25/21 10:24 Last Admin: 06/26/21 18:19 Dose: 1 mg Documented by: Lorazepam (Lorazepam 2 Mg/Ml Vial (Im Use)) 2 mg IM Q6 PRN PRN Reason: Agitation Stop: 07/25/21 15:30 Magnesium Hydroxide (Magnesium Hydroxide Susp 30 Ml Udc) 30 ml PO DAILY PRN PRN Reason: Constipation Stop: 07/25/21 10:22 Olanzapine (Olanzapine Zydis 10 Mg Orally Dis. Tab) 10 mg PO HS [facility] Stop: 07/25/21 21:59 Last Admin: 06/26/21 19:50 Dose: 10 mg Documented by: Olanzapine (Olanzapine Zydis 5 Mg Orally Dis. Tab) 5 mg PO BID PRN PRN Reason: Anxiety/Agitation Stop: 07/27/21 09:14 Propranolol HCl (Propranolol Hcl 10 Mg Tab) 10 mg PO BID PRN PRN Reason: akathisia/anxiety Stop: 07/27/21 20:59 Last Admin: 06/27/21 11:14 Dose: 10 mg Documented by: Sodium Chloride (Sodium Chloride 0.65% Na Soln 45 Ml ([place])) 1 - 2 sprays NA PRN PRN PRN Reason: Nasal Dryness/Congestion Stop: 07/25/21 10:22
[2021-06-27] MEDS ORDERED: risperiDONE ODT 0.5 MG SOLTAB PO PRN (15:52)
[2021-06-27] MEDS ORDERED: risperiDONE 1 MG TABLET PO SCH (22:00)
[2021-06-27] MEDS ORDERED: OLANZapine ZYDIS 5 MG ORALLY DIS. TAB PO SCH (22:00)
[2021-06-28] MEDS: risperiDONE 1 MG TABLET PO SCH (08:23)
--- NOTE | 2021-06-28 09:48 | Psychiatric Progress Note ---
Date of Service June 28, 2021 Impression / Recommendations Impression 25 yo man with a history of multiple prior psychiatric admission for psychosis admitted for disorganized/bizarre behavior [place] living [place]. He presents as paranoid and likely hallucinating and tested +for MJ. He has a hx of depression and drug use with subsequent psychotic symptoms in the past. Diagnostically consistent with unspecified psychosis but most likely primary psychotic disorder, schizophrenia, exacerbated by substance use given no clear evidence for other major mood symptoms and history of multiple prior episodes of psychosis and hx social withdrawal/negative symptoms. Also if substance-induced would expect faster resolution of psychotic symptoms. Currently on 303 commitment. 06/28/21--continues to present with significant psychosis including thought blocking, disorganized behavior, mood lability and guardedness. Tolerating risperidone and accepting po medication. Will continue cross-taper from olanzapine to risperidone. (1) Psychotic disorder: (2) Schizophrenia: 06/28/21: Continue cross-taper of zyprexa to risperidone. Reduce zyprexa to 2.5 mg qhs and increase risperidone to 2 mg qhs and continue with 1 mg qAM. 06/27/21: Start cross-taper from zyprexa to risperidone. If he refuses po medication will consider need for medication over objection. 06/26/21: continue Zyprexa trial with prns as ordered as significant improvement within 24 hours on medication. >35 min spent in testimony for 303 hearing/prep aside from his examination and coordination with treatment team. It is my opinion that if he were to refuse medications they should be given over objection as without treatment for his psychotic illness he is at significant risk of or serious disability within the next [address] Lemons to provide second opinion if needed. 06/25/21: The patient was admitted to the [facility] ([facility] mental health unit) on q15 min checks (behavioral with suicide precautions) for safety. The patient will participate in group, recreational, and milieu therapies and will be offered additional individual and family sessions as clinically appropriate. A MNPR is required given his level of paranoia and disorganization. Prn Haldol 5 mg and Ativan 1 mg are ordered and I am petitioning for a 303 hearing tomorrow as it is anticipated that he will require medications over objection if doesn't accept PO. Will offer Zyprexa zydus 10 mg this pm. He is not able to understand risks/benefits at this time. Will attempt fasting metabolic labs in the am. Inventory Assets Strengths: cannot assess, has a car and may be college educated Needs: increase insight into condition, outpatient providers and likely REZA. Risk Factors Assessment Male: Yes : No Do You Have Access To A Gun?: No (belongings secured by police) Protective Factors Assessment : No Responsible for Young Children: No Employed: No Interval History Identifying Information MAK BANKS is a 25-year-old M reportedly from [place], [place], very poor historian due to disorganized psychosis, and was admitted on 06/25/21 10:23 on a 302 involuntary commitment. 303 granted 06/26/21. Chief Complaint "I'm ok". Review of Systems Sleep Information Total Hours of Sleep: 8.25 Sleep Comments: pt on q-15 minute checks Meal Information Percent Meal Consumed - Breakfast: 50 Percent Meal Consumed - Lunch: 50 Percent Meal Consumed - Dinner: 100 Subjective Subjective Patient was seen & assessed and interval progress reviewed with treatment team nursing and social work. Continues to have some disorganized/bizarre behavior such as holding a magazine in front of his face when speaking to staff, odd jumping in the halls, observed to be responding to likely internal stimuli with yelling out in his room and crying. He did shower and change clothes last night. Accepting po medications. Attended groups this morning. Denies any side effects from his medications, likes the risperidone better so far as it doesn't seem to make him feel "off" like the zyprexa. Discussed ongoing cross-taper which he agrees with. Denies any other concerns. Physical Exam Psychiatric Orientation: alert, oriented to person and + guarded Eye Contact: + fair eye contact Motor Behavior: no abnormal motor movements Speech: + abnormal rate/rhythm/volume of speech Affect: + blunted affect Mood: + depressed mood and + anxious mood; no irritable mood Thought Process: + thought blocking, + tangential thought process and + incoherent thought process Thought Content: + paranoid and + delusions Cognition: + recent memory not intact and + attention not intact Insight: + impaired insight Judgement: + impaired judgement Vital Signs (Past 24 Hours) Last Vital Signs Temp 37.1 C 06/28/21 06:46 Pulse 80 06/28/21 06:46 Resp 16 06/28/21 06:46 BP 122/74 06/28/21 06:48 Pulse Ox 96 06/25/21 07:17 Results & Data ([facility]) Laboratory Results Laboratory Results - last 24 hr 06/27/21 09:37 Fasting Glucose 89 Triglycerides 114 Cholesterol 205 H LDL Cholesterol, Calc 136 VLDL Cholesterol, Calc 23 HDL Cholesterol 46 Cholesterol/HDL Ratio 4.5 Current Inpatient Medications Current Inpatient Medications: Current Inpatient Medications Acetaminophen (Acetaminophen 325 Mg Tab) 650 mg PO Q4H PRN PRN Reason: Headache or Minor Fever Stop: 07/25/21 10:22 Al Hydrox/Mg Hydrox/Simethicone (Aluminum/Magnesium Susp 30 Ml Udc) 30 ml PO Q4H PRN PRN Reason: GI Upset Stop: 07/25/21 10:22 Benztropine Mesylate (Benztropine Mesylate 1 Mg Tab) 1 mg PO Q6 PRN PRN Reason: EPS Stop: 07/25/21 10:24 Last Admin: 06/27/21 08:42 Dose: 1 mg Documented by: Benztropine Mesylate (Benztropine Mesylate 1 Mg/Ml 2 Ml Amp) 1 mg IM Q6 PRN PRN Reason: with Haldol IM Stop: 07/25/21 15:30 Bismuth Subsalicylate (Bismuth Subsalicylate Liqd 236 Ml) 15 ml PO PRN PRN PRN Reason: Loose Stool Stop: 07/25/21 10:22 Haloperidol Lactate (Haloperidol Lactate 5 Mg/Ml 1 Ml Vial) 10 mg IM Q6 PRN PRN Reason: Agitation Stop: 07/25/21 15:30 Hydroxyzine HCl (Hydroxyzine Hcl 25 Mg Tab) 50 mg PO HSZ PRN PRN Reason: Insomnia Stop: 07/25/21 10:22 Hydroxyzine HCl (Hydroxyzine Hcl 25 Mg Tab) 25 mg PO Q4H PRN PRN Reason: Anxiety Stop: 07/25/21 10:22 Lorazepam (Lorazepam 1 Mg Tab) 1 mg PO Q6 PRN PRN Reason: Anxiety/Agitation Stop: 07/25/21 10:24 Last Admin: 06/26/21 18:19 Dose: 1 mg Documented by: Lorazepam (Lorazepam 2 Mg/Ml Vial (Im Use)) 2 mg IM Q6 PRN PRN Reason: Agitation Stop: 07/25/21 15:30 Magnesium Hydroxide (Magnesium Hydroxide Susp 30 Ml Udc) 30 ml PO DAILY PRN PRN Reason: Constipation Stop: 07/25/21 10:22 Olanzapine (Olanzapine Zydis 5 Mg Orally Dis. Tab) 5 mg PO [facility] Stop: 07/27/21 21:59 Last Admin: 06/27/21 20:34 Dose: 5 mg Documented by: Propranolol HCl (Propranolol Hcl 10 Mg Tab) 10 mg PO BID PRN PRN Reason: akathisia/anxiety Stop: 07/27/21 20:59 Last Admin: 06/27/21 11:14 Dose: 10 mg Documented by: Risperidone (Risperidone 1 Mg Tablet) 1 mg PO [facility] Stop: 07/27/21 21:59 Last Admin: 06/27/21 20:20 Dose: 1 mg Documented by: Risperidone (Risperidone Odt 0.5 Mg Soltab) 0.5 mg PO TID PRN PRN Reason: Anxiety/Agitation Stop: 07/27/21 15:51 Risperidone (Risperidone 1 Mg Tablet) [facility] Stop: 07/28/21 08:59 Last Admin: 06/28/21 08:23 Dose: 1 mg Documented by: Sodium Chloride (Sodium Chloride 0.65% Na Soln 45 Ml ([place])) 1 - 2 sprays NA PRN PRN PRN Reason: Nasal Dryness/Congestion Stop: 07/25/21 10:22
[2021-06-28] MEDS: OLANZapine ZYDIS 5 MG ORALLY DIS. TAB PO SCH (20:56)
[2021-06-28] MEDS: risperiDONE 2 MG TABLET PO SCH (20:57)
[2021-06-29] MEDS: risperiDONE 1 MG TABLET PO SCH (09:11)
--- NOTE | 2021-06-29 15:29 | Psychiatric Progress Note ---
Date of Service June 29, 2021 Impression / Recommendations Impression 25 yo man with a history of multiple prior psychiatric admission for psychosis admitted for disorganized/bizarre behavior [place] living [place]. He presents as paranoid and likely hallucinating and tested +for MJ. He has a hx of depression and drug use with subsequent psychotic symptoms in the past. Diagnostically consistent with unspecified psychosis but most likely primary psychotic disorder, schizophrenia, exacerbated by substance use given no clear evidence for other major mood symptoms and history of multiple prior episodes of psychosis and hx social withdrawal/negative symptoms. Also if substance-induced would expect faster resolution of psychotic symptoms. Currently on 303 commitment. 06/29/21--continues to present with significant psychosis including thought blocking, disorganized behavior, mood lability, ideas of reference and guardedness. Concern for possible EPS from risperidone but unclear as he notes more depressed mood today which could be contributing to flatter affect and unclear if more hunched/stiffer walking pattern is part of psychosis vs from muscle stiffness, he consents to starting scheduled cogentin for this, will trial to see if this helps. Otherwise t risperidone and accepting po medication. Disposition planning remains very challenging since his mother is from [place] and at this point he is refusing to speak with her and he is otherwise homeless with no outpatient resources or means of meeting his basic needs such as food and safety. (1) Psychotic disorder: (2) Schizophrenia: 06/29/21: Transition to risperidone monotherapy: 1mg qAM & 2mg qhs. Adding scheduled cogentin. 06/28/21: Continue cross-taper of zyprexa to risperidone. Reduce zyprexa to 2.5 mg qhs and increase risperidone to 2 mg qhs and continue with 1 mg qAM. 06/27/21: Start cross-taper from zyprexa to risperidone. If he refuses po medication will consider need for medication over objection. 06/26/21: continue Zyprexa trial with prns as ordered as significant improvement within 24 hours on medication. >35 min spent in testimony for 303 hearing/prep aside from his examination and coordination with treatment team. It is my opinion that if he were to refuse medications they should be given over objection as without treatment for his psychotic illness he is at significant risk of or serious disability within the next [address] Lemons to provide second opinion if needed. 06/25/21: The patient was admitted to the [facility] ([facility] inpatient mental health unit) on q15 min checks (behavioral with suicide precautions) for safety. The patient will participate in group, recreational, and milieu therapies and will be offered additional individual and family sessions as clinically appropriate. A MNPR is required given his level of paranoia and disorganization. Prn Haldol 5 mg and Ativan 1 mg are ordered and I am petitioning for a 303 hearing tomorrow as it is anticipated that he will require medications over objection if doesn't accept PO. Will offer Zyprexa zydus 10 mg this pm. He is not able to understand risks/benefits at this time. Will attempt fasting metabolic labs in the am. Inventory Assets Strengths: cannot assess, has a car and may be college educated Needs: increase insight into condition, outpatient providers and likely REZA. Risk Factors Assessment Male: Yes : No Do You Have Access To A Gun?: No Protective Factors Assessment : No Responsible for Young Children: No Employed: No Interval History Identifying Information MAK BANKS is a 25-year-old M reportedly from [place], [place] most recently living with his mother in [place], very poor historian due to disorganized psychosis, and was admitted on 06/25/21 10:23 on a 302 involuntary commitment. 303 granted 06/26/21. Chief Complaint "I'm definitely more tired today than yesterday". Review of Systems Sleep Information Total Hours of Sleep: 7.75 Sleep Comments: pt appeared to sleep .75 hrs during evening shift. pt on q-15 minute checks Meal Information Percent Meal Consumed - Breakfast: 100 Percent Meal Consumed - Lunch: 100 Percent Meal Consumed - Dinner: 100 Subjective Subjective Patient was seen & assessed and interval progress reviewed with treatment team nursing and social work. He spoke with [facility] police yesterday on the phone regarding potential charges related to drug paraphernalia found in his car. He reported this conversation went well and that the police will need to present his case to the to determine if there will be any charges. He seemed to be making more eye contact last night and was more engaged in a group but then today had more mood lability, ideas of reference and spoke tangentially about a past trauma bothering him today. Stated his preference to process this on his own but understands staff are available should he desire additional support. He declined a call with his mother last night and remains resistant to consider talking with her. He denies any movement side effects from the risperidone but states he is limping at times due to a right leg "calf strain" he feels started weeks ago due to being in his car and driving and sitting and sleeping in the same position for a month. Offered options to help with this and he stated "it's too late, the damage is done". Physical Exam Psychiatric Orientation: alert and + guarded Apperance: appropriately dressed and appeared stated age Eye Contact: + poor eye contact Motor Behavior: + EPS (possible affect flattening and stiffer gait ) Speech: + abnormal rate/rhythm/volume of speech Affect: + labile affect Mood: + depressed mood and + anxious mood Thought Process: + thought blocking, + tangential thought process and + incoherent thought process Thought Content: + paranoid, + delusions and + ideas of reference Suicidal Thoughts: denies suicidal thoughts Homicidal Thoughts: denies homicidal thoughts Hallucinations: no auditory hallucinations (he denies but appears to be responding to internal stimuli) and no visual hallucinations Cognition: remote memory grossly intact and language grossly intact; + recent memory not intact and + attention not intact Insight: + severely impaired insight Judgement: + severely impaired judgement Vital Signs (Past 24 Hours) Last Vital Signs Temp 36.6 C 06/29/21 06:42 Pulse 79 06/29/21 06:43 Resp 16 06/29/21 06:42 BP 106/74 06/29/21 06:43 Pulse Ox 96 06/25/21 07:17 Results & Data ([facility]) Current Inpatient Medications Current Inpatient Medications: Current Inpatient Medications Acetaminophen (Acetaminophen 325 Mg Tab) 650 mg PO Q4H PRN PRN Reason: Headache or Minor Fever Stop: 07/25/21 10:22 Al Hydrox/Mg Hydrox/Simethicone (Aluminum/Magnesium Susp 30 Ml Udc) 30 ml PO Q4H PRN PRN Reason: GI Upset Stop: 07/25/21 10:22 Benztropine Mesylate (Benztropine Mesylate 1 Mg Tab) 1 mg PO Q6 PRN PRN Reason: EPS Stop: 07/25/21 10:24 Last Admin: 06/27/21 08:42 Dose: 1 mg Documented by: Benztropine Mesylate (Benztropine Mesylate 1 Mg/Ml 2 Ml Amp) 1 mg IM Q6 PRN PRN Reason: with Haldol IM Stop: 07/25/21 15:30 Bismuth Subsalicylate (Bismuth Subsalicylate Liqd 236 Ml) 15 ml PO PRN PRN PRN Reason: Loose Stool Stop: 07/25/21 10:22 Haloperidol Lactate (Haloperidol Lactate 5 Mg/Ml 1 Ml Vial) 10 mg IM Q6 PRN PRN Reason: Agitation Stop: 07/25/21 15:30 Hydroxyzine HCl (Hydroxyzine Hcl 25 Mg Tab) 50 mg PO HSZ PRN PRN Reason: Insomnia Stop: 07/25/21 10:22 Hydroxyzine HCl (Hydroxyzine Hcl 25 Mg Tab) 25 mg PO Q4H PRN PRN Reason: Anxiety Stop: 07/25/21 10:22 Lorazepam (Lorazepam 1 Mg Tab) 1 mg PO Q6 PRN PRN Reason: Anxiety/Agitation Stop: 07/25/21 10:24 Last Admin: 06/26/21 18:19 Dose: 1 mg Documented by: Lorazepam (Lorazepam 2 Mg/Ml Vial (Im Use)) 2 mg IM Q6 PRN PRN Reason: Agitation Stop: 07/25/21 15:30 Magnesium Hydroxide (Magnesium Hydroxide Susp 30 Ml Udc) 30 ml PO DAILY PRN PRN Reason: Constipation Stop: 07/25/21 10:22 Olanzapine (Olanzapine Zydis 5 Mg Orally Dis. Tab) 2.5 mg PO [facility] Stop: 07/28/21 21:59 Last Admin: 06/28/21 20:56 Dose: 2.5 mg Documented by: Propranolol HCl (Propranolol Hcl 10 Mg Tab) 10 mg PO BID PRN PRN Reason: akathisia/anxiety Stop: 07/27/21 20:59 Last Admin: 06/27/21 11:14 Dose: 10 mg Documented by: Risperidone (Risperidone Odt 0.5 Mg Soltab) 0.5 mg PO TID PRN PRN Reason: Anxiety/Agitation Stop: 07/27/21 15:51 Risperidone ([facility] 1 Mg [facility]t) [facility] Stop: 07/28/21 08:59 Last Admin: 06/29/21 09:11 Dose: 1 mg Documented by: Risperidone (Risperidone 2 Mg Tablet) 2 mg PO [facility] Stop: 07/28/21 21:59 Last Admin: 06/28/21 20:57 Dose: 2 mg Documented by: Sodium Chloride (Sodium Chloride 0.65% Na Soln 45 Ml ([place])) 1 - 2 sprays NA PRN PRN PRN Reason: Nasal Dryness/Congestion Stop: 07/25/21 10:22 Post Discharge Appointments Contact Information Contact Information Comment: Mom's Address: [facility] [address], [address] [address], [place], [place]
[2021-06-29] MEDS: BENZTROPINE MESYLATE 1 MG TAB PO SCH (20:59)
[2021-06-29] MEDS: OLANZapine ZYDIS 5 MG ORALLY DIS. TAB PO SCH (21:00)
[2021-06-29] MEDS: risperiDONE 2 MG TABLET PO SCH (21:01)
[2021-06-30] MEDS: BENZTROPINE MESYLATE 1 MG TAB PO SCH ×2 (08:20→20:06)
[2021-06-30] MEDS: risperiDONE 1 MG TABLET PO SCH (08:20)
--- NOTE | 2021-06-30 16:10 | Psychiatric Progress Note ---
Date of Service June 30, 2021 Impression / Recommendations Impression 25 yo man with a history of multiple prior psychiatric admission for psychosis admitted for disorganized/bizarre behavior while living out of his car [place] station. He presents as paranoid and likely hallucinating and tested +for MJ. He has a hx of depression and drug use with subsequent psychotic symptoms in the past. Diagnostically consistent with unspecified psychosis but most likely primary psychotic disorder, schizophrenia, exacerbated by substance use given no clear evidence for other major mood symptoms and history of multiple prior episodes of psychosis and hx social withdrawal/negative symptoms. Also if substance-induced would expect faster resolution of psychotic symptoms. Currently on 303 commitment. 06/30/21--slow improvement in psychosis, tolerating risperidone well. No signs of EPS with addition of cogentin. Disposition planning remains very challenging since his mother is from [place] and at this point he is refusing to speak with her and he is otherwise homeless with no outpatient resources or means of meeting his basic needs such as food and safety. Insight and judgement remain impaired. (1) Psychotic disorder: (2) Schizophrenia: 06/30/21: continue with medications. motivational interviewing regarding plans for disposition and substance use. 06/29/21: Transition to risperidone monotherapy: 1mg qAM & 2mg qhs. Adding schedu led cogentin. 06/28/21: Continue cross-taper of zyprexa to risperidone. Reduce zyprexa to 2.5 mg qhs and increase risperidone to 2 mg qhs and continue with 1 mg qAM. 06/27/21: Start cross-taper from zyprexa to risperidone. If he refuses po medication will consider need for medication over objection. 06/26/21: continue Zyprexa trial with prns as ordered as significant improvement within 24 hours on medication. >35 min spent in testimony for 303 hearing/prep aside from his examination and coordination with treatment team. It is my opinion that if he were to refuse medications they should be given over objection as without treatment for his psychotic illness he is at significant risk of or serious disability within the next [address] Lemons to provide second opinion if needed. 06/25/21: The patient was admitted to the [facility] ([facility] mental health unit) on q15 min checks (behavioral with suicide precautions) for safety. The patient will participate in group, recreational, and milieu therapies and will be offered additional individual and family sessions as clinically appropriate. A MNPR is required given his level of paranoia and disorganization. Prn Haldol 5 mg and Ativan 1 mg are ordered and I am petitioning for a 303 hearing tomorrow as it is anticipated that he will require medications over objection if doesn't accept PO. Will offer Zyprexa zydus 10 mg this pm. He is not able to understand risks/benefits at this time. Will attempt fasting metabolic labs in the am. Inventory Assets Strengths: cannot assess, has a car and may be college educated Needs: increase insight into condition, outpatient providers and likely REZA. Risk Factors Assessment Male: Yes : No Do You Have Access To A Gun?: No Protective Factors Assessment : No Responsible for Young Children: No Employed: No Interval History Identifying Information CALEB BANKS is a 25-year-old M reportedly from [place], [place] most recently living with his mother in [place], very poor historian due to disorganized psychosis, and was admitted on 06/25/21 10:23 on a 302 involuntary commitment. 303 granted 06/26/21. Chief Complaint "I'm not sure". Review of Systems Sleep Information Total Hours of Sleep: 6.5 Sleep Comments: pt on q-15 minute checks Meal Information Percent Meal Consumed - Breakfast: 100 Percent Meal Consumed - Lunch: 100 Percent Meal Consumed - Dinner: 75 Subjective Subjective Patient was seen & assessed and interval progress reviewed with treatment team nursing and social work. Caleb was quite isolative through yesterday evening but revealed to staff that this is partly driven by sadness from the anniversary of a friend's . Today he reports some fatigue but feels this is lessened since stopping the zyprexa. He likes the way the risperidone is dosed currently, doesn't want to consolidate more at [facility]. Feels his calf stiffness has greatly improved, denies any muscle stiffness nor abnormal movements. Discussed with him his potential plans once he improves-he is unsure where he would go or how he will get by in the short term but reports he was accepted and put down a deposit for a school in [facility] for the fall to get a masters in environmental education. Physical Exam Psychiatric Orientation: alert and + guarded Apperance: appropriately dressed and appeared stated age Eye Contact: + fair eye contact Motor Behavior: no abnormal motor movements Speech: + abnormal rate/rhythm/volume of speech Affect: + blunted affect Mood: + depressed mood Thought Process: + thought blocking Thought Content: + paranoid and + ideas of reference Suicidal Thoughts: denies suicidal thoughts Homicidal Thoughts: denies homicidal thoughts Hallucinations: no auditory hallucinations (he denies but appears to be responding to internal stimuli) and no visual hallucinations Cognition: remote memory grossly intact and language grossly intact; + recent memory not intact and + attention not intact Insight: + impaired insight Judgement: + impaired judgement Vital Signs (Past 24 Hours) Last Vital Signs Temp 36.8 C 06/30/21 06:37 Pulse 118 H 06/30/21 06:38 Resp 16 06/30/21 06:37 BP 141/78 H 06/30/21 06:38 Pulse Ox 96 06/25/21 07:17 Results & Data ([facility]) Current Inpatient Medications Current Inpatient Medications: Current Inpatient Medications Acetaminophen (Acetaminophen 325 Mg Tab) 650 mg PO Q4H PRN PRN Reason: Headache or Minor Fever Stop: 07/25/21 10:22 Al Hydrox/Mg Hydrox/Simethicone (Aluminum/Magnesium Susp 30 Ml Udc) 30 ml PO Q4H PRN PRN Reason: GI Upset Stop: 07/25/21 10:22 Benztropine Mesylate (Benztropine Mesylate 1 Mg/Ml 2 Ml Amp) 1 mg IM Q6 PRN PRN Reason: with Haldol IM Stop: 07/25/21 15:30 Benztropine Mesylate (Benztropine Mesylate 1 Mg Tab) 1 mg PO BID STEFFEN Stop: 07/29/21 20:59 Last Admin: 06/30/21 08:20 Dose: 1 mg Documented by: Bismuth Subsalicylate (Bismuth Subsalicylate Liqd 236 Ml) 15 ml PO PRN PRN PRN Reason: Loose Stool Stop: 07/25/21 10:22 Haloperidol Lactate (Haloperidol Lactate 5 Mg/Ml 1 Ml Vial) 10 mg IM Q6 PRN PRN Reason: Agitation Stop: 07/25/21 15:30 Hydroxyzine HCl (Hydroxyzine Hcl 25 Mg Tab) 50 mg PO HSZ PRN PRN Reason: Insomnia Stop: 07/25/21 10:22 Hydroxyzine HCl (Hydroxyzine Hcl 25 Mg Tab) 25 mg PO Q4H PRN PRN Reason: Anxiety Stop: 07/25/21 10:22 Lorazepam (Lorazepam 1 Mg Tab) 1 mg PO Q6 PRN PRN Reason: Anxiety/Agitation Stop: 07/25/21 10:24 Last Admin: 06/26/21 18:19 Dose: 1 mg Documented by: Lorazepam (Lorazepam 2 Mg/Ml Vial (Im Use)) 2 mg IM Q6 PRN PRN Reason: Agitation Stop: 07/25/21 15:30 Magnesium Hydroxide (Magnesium Hydroxide Susp 30 Ml Udc) 30 ml PO DAILY PRN PRN Reason: Constipation Stop: 07/25/21 10:22 Olanzapine (Olanzapine Zydis 5 Mg Orally Dis. Tab) 2.5 mg PO HS STEFFEN Stop: 07/28/21 21:59 Last Admin: 06/29/21 21:00 Dose: 2.5 mg Documented by: Propranolol HCl (Propranolol Hcl 10 Mg Tab) 10 mg PO BID PRN PRN Reason: akathisia/anxiety Stop: 07/27/21 20:59 Last Admin: 06/27/21 11:14 Dose: 10 mg Documented by: Risperidone (Risperidone Odt 0.5 Mg Soltab) 0.5 mg PO TID PRN PRN Reason: Anxiety/Agitation Stop: 07/27/21 15:51 Risperidone (Risperidone 1 Mg Tablet) 1 mg PO QAM [facility] Stop: 07/28/21 08:59 Last Admin: 06/30/21 08:20 Dose: 1 mg Documented by: Risperidone (Risperidone 2 Mg Tablet) 2 mg PO HS STEFFEN Stop: 07/28/21 21:59 Last Admin: 06/29/21 21:01 Dose: 2 mg Documented by: Sodium Chloride (Sodium Chloride 0.65% Na Soln 45 Ml ([place])) 1 - 2 sprays NA PRN PRN PRN Reason: Nasal Dryness/Congestion Stop: 07/25/21 10:22 Post Discharge Appointments Contact Information Contact Information Comment: Mom's Address: [address], [address] [address], [place], [place]
[2021-06-30] MEDS: OLANZapine ZYDIS 5 MG ORALLY DIS. TAB PO SCH (20:06)
[2021-06-30] MEDS: risperiDONE 2 MG TABLET PO SCH (20:07)
[2021-07-01] MEDS: BENZTROPINE MESYLATE 1 MG TAB PO SCH ×2 (08:22→20:53)
[2021-07-01] MEDS: risperiDONE 1 MG TABLET PO SCH (08:23)
[2021-07-01] MEDS ORDERED: FLUARIX QUADRIVALENT 0.5 ML SYR IM ONE (08:34)
--- NOTE | 2021-07-01 15:22 | Psychiatric Progress Note ---
Date of Service July 01, 2021 Impression / Recommendations Impression 25 yo man with a history of multiple prior psychiatric admission for psychosis admitted for disorganized/bizarre behavior while living [place]. He presents as paranoid and likely hallucinating and tested +for MJ. He has a hx of depression and drug use with subsequent psychotic symptoms in the past. Diagnostically consistent with unspecified psychosis but most likely primary psychotic disorder, schizophrenia, exacerbated by substance use given no clear evidence for other major mood symptoms and history of multiple prior episodes of psychosis and hx social withdrawal/negative symptoms. Also if substance-induced would expect faster resolution of psychotic symptoms. Currently on 303 commitment. 07/01/21--significant lessening of psychosis today, tolerating risperidone well. No signs of EPS with addition of cogentin. Disposition planning remains very challenging since his mother is from [place] and at this point he is refusing to speak with her however he has been reflecting on his disposition plans and showing improvement insight regarding potential challenges and how he plans to address these and work through them. He would like to complete his drive to [facility] where he plans to stay with a friend and live until starting graduate school in the fall. We will work on establishing outpatient services there for him to follow-up with. (1) Psychotic disorder: (2) Schizophrenia: 07/01/21: continue with risperidone and cogentin. Tapering cogetin tomorrow as no further signs of EPS. 06/30/21: continue with medications. motivational interviewing regarding plans for disposition and substance use. 06/29/21: Transition to risperidone monotherapy: 1mg qAM & 2mg qhs. Adding scheduled cogentin. 06/28/21: Continue cross-taper of zyprexa to risperidone. Reduce zyprexa to 2.5 mg qhs and increase risperidone to 2 mg qhs and continue with 1 mg qAM. 06/27/21: Start cross-taper from zyprexa to risperidone. If he refuses po me dication will consider need for medication over objection. 06/26/21: continue Zyprexa trial with prns as ordered as significant improvement within 24 hours on medication. >35 min spent in testimony for 303 hearing/prep aside from his examination and coordination with treatment team. It is my opinion that if he were to refuse medications they should be given over objection as without treatment for his psychotic illness he is at significant risk of or serious disability within the next [address] Lemons to provide second opinion if needed. 06/25/21: The patient was admitted to the [facility] ([facility] mental [facility]) on q15 min checks (behavioral with suicide precautions) for safety. The patient will participate in group, recreational, and milieu therapies and will be offered additional individual and family sessions as clinically appropriate. A MNPR is required given his level of paranoia and disorganization. Prn Haldol 5 mg and Ativan 1 mg are ordered and I am petitioning for a 303 hearing tomorrow as it is anticipated that he will require medications over objection if doesn't accept PO. Will offer Zyprexa zydus 10 mg this pm. He is not able to understand risks/benefits at this time. Will attempt fasting metabolic labs in the am. Inventory Assets Strengths: cannot assess, has a car and may be college educated Needs: increase insight into condition, outpatient providers and likely REZA. Risk Factors Assessment Male: Yes : No Do You Have Access To A Gun?: No Protective Factors Assessment : No Responsible for Young Children: No Employed: No Interval History Identifying Information MAK BANKS is a 25-year-old M reportedly from [place], [place] most recently living with his mother in [place], very poor historian due to disorganized psychosis, and was admitted on 06/25/21 10:23 on a 302 involuntary commitment. 303 granted 06/26/21. Chief Complaint "I thought a lot about what you said and wrote out my plans for the next few months". Review of Systems Sleep Information Total Hours of Sleep: 8.75 Sleep Comments: pt appeared to sleep 1.75 hrs during evening shift. pt on q-15 minute checks Meal Information Percent Meal Consumed - Breakfast: 100 Percent Meal Consumed - Lunch: 100 Percent Meal Consumed - Dinner: 100 Subjective Subjective Patient was seen & assessed and interval progress reviewed with treatment team nursing and social work. Participating in groups and significant improvement in ability to converse with staff and communicate. He endorses stable mood and shows me a detailed plan he made regarding how he plans to get to [place] where he hopes to live with friends but if not will live in his car. Has detailed what steps he will take if his car won't start or if he can't find his wallet in his car (i.e. calling bank to cancel cards and order new ones to be sent to friend's address in [place]). We review how he will get gas to drive to [place] and he describes where he has extra money in his car that he plans to use for this. Reviewed his plans to then work on getting a job and applying for medical assistance in [place]. He hopes to relocate to [place] in November or December to start graduate school. Reviewed his risperidone dosing, side effects and mechanism of action. Motivational interviewing and counseling regarding recommendation to avoid all future substance use especially marijauna as this seems to lead to episodes of psychosis. Physical Exam Psychiatric Orientation: alert, oriented x 3 and cooperative Apperance: appropriately dressed and appeared stated age Eye Contact: + fair eye contact Motor Behavior: no abnormal motor movements; n EPS Speech: normal rate/rhythm/volume of speech Affect: + constricted affect (some smiles today) Mood: + anxious mood (some worries about his car not starting up since it's been in the cold); no depressed mood and no irritable mood Thought Process: goal directed thought process Thought Content: reality based without delusions Suicidal Thoughts: denies suicidal thoughts Homicidal Thoughts: denies homicidal thoughts Hallucinations: no auditory hallucinations and no visual hallucinations Cognition: recent memory grossly intact, remote memory grossly intact, attention grossly intact and language grossly intact Insight: + fair insight Judgement: + fair judgement Vital Signs (Past 24 Hours) Last Vital Signs Temp 36.8 C 07/01/21 06:24 Pulse 64 07/01/21 06:25 Resp 16 07/01/21 06:24 BP 110/70 07/01/21 06:25 Pulse Ox 96 06/25/21 07:17 Results & Data ([facility]) Current Inpatient Medications Current Inpatient Medications: Current Inpatient Medications Acetaminophen (Acetaminophen 325 Mg Tab) 650 mg PO Q4H PRN PRN Reason: Headache or Minor Fever Stop: 07/25/21 10:22 Al Hydrox/Mg Hydrox/Simethicone (Aluminum/Magnesium Susp 30 Ml Udc) 30 ml PO Q4H PRN PRN Reason: GI Upset Stop: 07/25/21 10:22 Benztropine Mesylate (Benztropine Mesylate 1 Mg/Ml 2 Ml Amp) 1 mg IM Q6 PRN PRN Reason: with Haldol IM Stop: 07/25/21 15:30 Benztropine Mesylate (Benztropine Mesylate 1 Mg Tab) 1 mg PO BID STEFFEN Stop: 07/29/21 20:59 Last Admin: 07/01/21 08:22 Dose: 1 mg Documented by: Bismuth Subsalicylate (Bismuth Subsalicylate Liqd 236 Ml) 15 ml PO PRN PRN PRN Reason: Loose Stool Stop: 07/25/21 10:22 Haloperidol Lactate (Haloperidol Lactate 5 Mg/Ml 1 Ml Vial) 10 mg IM Q6 PRN PRN Reason: Agitation Stop: 07/25/21 15:30 Hydroxyzine HCl (Hydroxyzine Hcl 25 Mg Tab) 50 mg PO HSZ PRN PRN Reason: Insomnia Stop: 07/25/21 10:22 Hydroxyzine HCl (Hydroxyzine Hcl 25 Mg Tab) 25 mg PO Q4H PRN PRN Reason: Anxiety Stop: 07/25/21 10:22 Lorazepam (Lorazepam 1 Mg Tab) 1 mg PO Q6 PRN PRN Reason: Anxiety/Agitation Stop: 07/25/21 10:24 Last Admin: 06/26/21 18:19 Dose: 1 mg Documented by: Lorazepam (Lorazepam 2 Mg/Ml Vial (Im Use)) 2 mg IM Q6 PRN PRN Reason: Agitation Stop: 07/25/21 15:30 Magnesium Hydroxide (Magnesium Hydroxide Susp 30 Ml Udc) 30 ml PO DAILY PRN PRN Reason: Constipation Stop: 07/25/21 10:22 Olanzapine (Olanzapine Zydis 5 Mg Orally Dis. Tab) 2.5 mg PO HS STEFFEN Stop: 07/28/21 21:59 Last Admin: 06/30/21 20:06 Dose: 2.5 mg Documented by: Propranolol HCl (Propranolol Hcl 10 Mg Tab) 10 mg PO BID PRN PRN Reason: akathisia/anxiety Stop: 07/27/21 20:59 Last Admin: 06/27/21 11:14 Dose: 10 mg Documented by: Risperidone (Risperidone Odt 0.5 Mg Soltab) 0.5 mg PO TID PRN PRN Reason: Anxiety/Agitation Stop: 07/27/21 15:51 Risperidone (Risperidone 1 Mg Tablet) 1 mg PO QAM STEFFEN Stop: 07/28/21 08:59 Last Admin: 07/01/21 08:23 Dose: 1 mg Documented by: Risperidone (Risperidone 2 Mg Tablet) 2 mg PO HS STEFFEN Stop: 07/28/21 21:59 Last Admin: 06/30/21 20:07 Dose: 2 mg Documented by: Sodium Chloride (Sodium Chloride 0.65% Na Soln 45 Ml ([place])) 1 - 2 sprays NA PRN PRN PRN Reason: Nasal Dryness/Congestion Stop: 07/25/21 10:22 Post Discharge Appointments Primary Care Physician Name Of Family Doctor: [facility] Primary Care Provider Appointment Comment: [address] [place] [address] - Follow up as needed Contact Information Contact Information Comment: Mom's Address: [facility] [address] [address], [place], [place]
[2021-07-01] MEDS: risperiDONE 2 MG TABLET PO SCH (20:54)
[2021-07-01] MEDS: OLANZapine ZYDIS 5 MG ORALLY DIS. TAB PO SCH (20:54)
[2021-07-02] MEDS: BENZTROPINE MESYLATE 1 MG TAB PO SCH (09:06)
[2021-07-02] MEDS: risperiDONE 1 MG TABLET PO SCH (09:06)
--- NOTE | 2021-07-02 10:46 | Psychiatric Progress Note ---
Date of Service July 02, 2021 Impression / Recommendations Impression 25 yo man with a history of multiple prior psychiatric admission for psychosis admitted for disorganized/bizarre behavior while living out of his car [place]. He presents as paranoid and likely hallucinating and tested +for MJ. He has a hx of depression and drug use with subsequent psychotic symptoms in the past. Diagnostically consistent with unspecified psychosis but most likely primary psychotic disorder, schizophrenia, exacerbated by substance use given no clear evidence for other major mood symptoms and history of multiple prior episodes of psychosis and hx social withdrawal/negative symptoms. Also if substance-induced would expect faster resolution of psychotic symptoms. Currently on 303 commitment. 07/02/21--No symptoms of psychosis and tolerating risperidone well without any side effects. Will change cogentin to prn which he agrees with and reviewed when to ask for this and how to take it as prn (for muscle stiffness, EPS symptoms). He remains consistent in his desire to not involve his mother in his care and to continue on his way to [place]. He is going to work on his safety plan today. We are working on establishing outpatient services there for him to follow-up with. Social work updated his mother on his progress and his plan to return to [place]. (1) Psychotic disorder: (2) Schizophrenia: 07/02/21: continue risperidone, changing cogentin to prn as no further signs of EPS and previous odd gait more likely related to psychosis than EPS. He needs to complete a safety plan. 07/01/21: continue with risperidone and cogentin. Tapering cogetin tomorrow as no further signs of EPS. 06/30/21: continue with medications. motivational interviewing regarding plans for disposition and substance use. 06/29/21: Transition to risperidone monotherapy: 1mg qAM & 2mg qhs. Adding scheduled cogentin. 06/28/21: Continue cross-taper of zyprexa to risperidone. Reduce zyprexa to 2.5 mg qhs and increase risperidone to 2 mg qhs and continue with 1 mg qAM. 06/27/21: Start cross-taper from zyprexa to risperidone. If he refuses po medication will consider need for medication over objection. 06/26/21: continue Zyprexa trial with prns as ordered as significant improvement within 24 hours on medication. >35 min spent in testimony for 303 hearing/prep aside from his examination and coordination with treatment team. It is my opinion that if he were to refuse medications they should be given over objection as without treatment for his psychotic illness he is at significant risk of or serious disability within the next [address] Lemons to provide second opinion if needed. 06/25/21: The patient was admitted to the [facility] ([facility] mental [facility] unit) on q15 min checks (behavioral with suicide precautions) for safety. The patient will participate in group, recreational, and milieu therapies and will be offered additional individual and family sessions as clinically appropriate. A MNPR is required given his level of paranoia and disorganization. Prn Haldol 5 mg and Ativan 1 mg are ordered and I am petitioning for a 303 hearing tomorrow as it is anticipated that he will require medications over objection if doesn't accept PO. Will offer Zyprexa zydus 10 mg this pm. He is not able to understand risks/benefits at this time. Will attempt fasting metabolic labs in the am. Inventory Assets Strengths: cannot assess, has a car and may be college educated Needs: increase insight into condition, outpatient providers and likely [facility]. Risk Factors Assessment Male: Yes : No Do You Have Access To A Gun?: No Protective Factors Assessment : No Responsible for Young Children: No Employed: No Interval History Identifying Information CALEB BANKS is a 25-year-old M reportedly from [place], [place] most recently living with his mother in [place], very poor historian due to disorganized psychosis, and was admitted on 06/25/21 10:23 on a 302 involuntary commitment. 303 granted 06/26/21. Chief Complaint "I'm a little more depressed today". Review of Systems Sleep Information Total Hours of Sleep: 8 Sleep Comments: pt appeared to sleep 1.75 hrs during evening shift. pt on q-15 minute checks Meal Information Percent Meal Consumed - Breakfast: 100 Percent Meal Consumed - Lunch: 100 Percent Meal Consumed - Dinner: 100 Subjective Subjective Patient was seen & assessed and interval progress reviewed with treatment team nursing and social work. Caleb has been engaging appropriately in groups with no evidence for psychotic symptoms over the last 24 hours. He endorses stable sleep and appetite. Today he reports his mood is a "little more depressed" which he attributes to thinking about some past memories that make him sad. We again discussed goal of going to [facility] after discharge. Reviewed potential resources there that he could utilize. Again explored and encouraged him to consider involving his mother as a support but he declines this and declines a family meeting stating "I was clear with her on the phone the other day that I don't want to speak with her". He continues to tolerate risperidone well without any side effects. Discussed tapering cogentin to prn which he is agreeable to. Reviewed warning signs for EPS and acute dystonia and when to take Cogentin ve rsus presenting at local ED should acute dystonia ever occur. Physical Exam Psychiatric Orientation: alert, oriented x 3 and cooperative Apperance: appropriately dressed and appeared stated age Eye Contact: + fair eye contact Motor Behavior: no abnormal motor movements Speech: normal rate/rhythm/volume of speech Affect: + constricted affect (made a joke today) Mood: + depressed mood and + anxious mood (some worries about his car not starting up since it's been in the cold) Thought Process: goal directed thought process Thought Content: reality based without delusions Suicidal Thoughts: denies suicidal thoughts Homicidal Thoughts: denies homicidal thoughts Hallucinations: no auditory hallucinations and no visual hallucinations Cognition: recent memory grossly intact, remote memory grossly intact, attention grossly intact and language grossly intact Insight: + fair insight Judgement: + fair judgement Vital Signs (Past 24 Hours) Last Vital Signs Temp 37 C 07/02/21 06:00 Pulse 86 07/02/21 06:19 Resp 16 07/02/21 06:00 BP 122/78 07/02/21 06:19 Pulse Ox 96 06/25/21 07:17 Results & Data ([facility]) Current Inpatient Medications Current Inpatient Medications: Current Inpatient Medications Acetaminophen (Acetaminophen 325 Mg Tab) 650 mg PO Q4H PRN PRN Reason: Headache or Minor Fever Stop: 07/25/21 10:22 Al Hydrox/Mg Hydrox/Simethicone (Aluminum/Magnesium Susp 30 Ml Udc) 30 ml PO Q4H PRN PRN Reason: GI Upset Stop: 07/25/21 10:22 Benztropine Mesylate (Benztropine Mesylate 1 Mg/Ml 2 Ml Amp) 1 mg IM Q6 PRN PRN Reason: with Haldol IM Stop: 07/25/21 15:30 Benztropine Mesylate (Benztropine Mesylate 1 Mg Tab) 1 mg PO BID STEFFEN Stop: 07/29/21 20:59 Last Admin: 07/02/21 09:06 Dose: 1 mg Documented by: Bismuth Subsalicylate (Bismuth Subsalicylate Liqd 236 Ml) 15 ml PO PRN PRN PRN Reason: Loose Stool Stop: 07/25/21 10:22 Haloperidol Lactate (Haloperidol Lactate 5 Mg/Ml 1 Ml Vial) 10 mg IM Q6 PRN PRN Reason: Agitation Stop: 07/25/21 15:30 Hydroxyzine HCl (Hydroxyzine Hcl 25 Mg Tab) 50 mg PO HSZ PRN PRN Reason: Insomnia Stop: 07/25/21 10:22 Hydroxyzine HCl (Hydroxyzine Hcl 25 Mg Tab) 25 mg PO Q4H PRN PRN Reason: Anxiety Stop: 07/25/21 10:22 Lorazepam (Lorazepam 1 Mg Tab) 1 mg PO Q6 PRN PRN Reason: Anxiety/Agitation Stop: 07/25/21 10:24 Last Admin: 06/26/21 18:19 Dose: 1 mg Documented by: Lorazepam (Lorazepam 2 Mg/Ml Vial (Im Use)) 2 mg IM Q6 PRN PRN Reason: Agitation Stop: 07/25/21 15:30 Magnesium Hydroxide (Magnesium Hydroxide Susp 30 Ml Udc) 30 ml PO DAILY PRN PRN Reason: Constipation Stop: 07/25/21 10:22 Olanzapine (Olanzapine Zydis 5 Mg Orally Dis. Tab) 2.5 mg PO [facility] Stop: 07/28/21 21:59 Last Admin: 07/01/21 20:54 Dose: 2.5 mg Documented by: Propranolol HCl (Propranolol Hcl 10 Mg Tab) 10 mg PO BID PRN PRN Reason: akathisia/anxiety Stop: 07/27/21 20:59 Last Admin: 06/27/21 11:14 Dose: 10 mg Documented by: Risperidone (Risperidone Odt 0.5 Mg Soltab) 0.5 mg PO TID PRN PRN Reason: Anxiety/Agitation Stop: 07/27/21 15:51 Risperidone (Risperidone 1 Mg Tablet) [facility]: 07/28/21 08:59 Last Admin: 07/02/21 09:06 Dose: 1 mg Documented by: Risperidone (Risperidone 2 Mg Tablet) 2 mg PO [facility] Stop: 07/28/21 21:59 Last Admin: 07/01/21 20:54 Dose: 2 mg Documented by: Sodium Chloride (Sodium Chloride 0.65% Na Soln 45 Ml ([place])) 1 - 2 sprays NA PRN PRN PRN Reason: Nasal Dryness/Congestion Stop: 07/25/21 10:22 Post Discharge Appointments Primary Care Physician Name Of Family Doctor: [facility] Primary Care Provider Appointment Comment: [address] [place] [id number] - Follow up as needed Other #1: Name of Aftercare Appointment: [facility] Phone Number of Aftercare Appointment: [phone] Aftercare Appointment Comment: Call for assistance with Medical Assistance application. #2: Name of Aftercare Appointment: [facility] Phone Number of Aftercare Appointment: [phone] Contact Information Contact Information Comment: Mom's Address: [address], [address] [address], [place], [place]
[2021-07-02] MEDS ORDERED: BENZTROPINE MESYLATE 1 MG TAB PO PRN (14:30)
[2021-07-02] MEDS: risperiDONE 2 MG TABLET PO SCH (21:07)
[2021-07-02] MEDS: OLANZapine ZYDIS 5 MG ORALLY DIS. TAB PO SCH (21:07)
[2021-07-03] MEDS: risperiDONE 1 MG TABLET PO SCH (08:34)
--- NOTE | 2021-07-03 11:08 | Discharge Summary ---
Date of Service July 03, 2021 History of Present Illness Per Dr. Corcoran: The patient presented to the ED with tangential thoughts alternating with tearfulness and anxiety. He is not able to answer now as decompensated on transition to the unit, paranoid and refusing questions, took Haldol and Ativan with much prompting. He reported driving around the country between [place] and [place]. He has been living out of his car and sleeping at gas stations. He appeared to be responding to internal stimuli, looking off to the side while talking. Police were called to a convenience store in [place] as attempting to take drinks from the gas station to fill them up to gasoline. In the ED he would pace and p oint to the floor. He apparently endorsed being in [place] and [place]. He was somewhat grandiose talking about seeking a masters degrees at [employer]. He endorsed decreased appetite and poor sleep. It is unclear if he is having true anxiety or just experiencing restlessness. Urine tox was positive for MJ and he may have used other substances 5 years ago. Physical Exam Vital Signs (Past 24 Hours) Last Vital Signs Temp 37.1 C 07/03/21 06:00 Pulse 83 07/03/21 06:28 Resp 16 07/03/21 06:00 BP 113/77 07/03/21 06:28 Pulse Ox 96 06/25/21 07:17 See admission H&P and DOD summary. Principal Diagnosis Unspecified psychotic disorder Psychiatric Data See daily stay summary. He presented with symptoms of psychosis concerning for possible substance-induced versus primary psychotic disorder. He responded to scheduled risperidone and showed rapid improvement in symptoms with no further symptoms of psychosis and stable mood. This felt to suggest that substance- induced presentation was more likely however given his history of prior episodes of psychosis and some potential negative symptoms schizophrenia/primary psychotic disorder remains on the differential. In short, patient was engaged with the social/therapeutic milieu of the unit, safety was maintained and the patient was cooperative with care. After improvement of psychosis he showed good insight and judgment including extensive discussions with staff and providers regarding his plans after discharge to continue driving to [place] where he plans to live with friends before starting graduate school in December 2021. He agrees to establish care with the [facility] in [place] and agrees to use the provided resources to apply for medical insurance there. Extensive time was spent on motivational interviewing regarding his marijuana use which he agrees to stop using. Medication changes included initiation of risperidone 1mg qAM & 2mg qHS as well as cogentin prn and they tolerated this well. Baseline labs of fasting glucose, fasting lipid profile, and weight were preformed and within normal limits with the exception of slightly elevated cholesterol of 205. Recommend repeat weight in one month. Recommend repeat fasting glucose, fasting lipid profile every 12 weeks and then annually if he remains on risperidone. If symptoms arise recommend checking BP, EKG, prolactin level as clinically indicated or relevant. He declined a family session and safety plan was completed prior to discharge. Day of Discharge Assessment Today the patient voices readiness for discharge. They note improvement in mood and anxiety. They deny thoughts of harm to self or others. Thoughts are organized and they are clinically improved from admission. There is no evidence of psychosis. They improved in the hospital with support and medication adjustments. They agree to take medications as prescribed and keep follow-up appointments. At the time of the discharge they are deemed to be stable and appropriate for outpatient level of care. They are not deemed to be at imminent risk of harm to self or others. They are aware of emergency and crisis services. Knows to call 911 or go to nearest emergency care center if in a crisis which cannot be handled as an outpatient. Transition of Care Transition Of Care Record: was reviewed with the patient Advance Directives Advance Directives Information Provided: Yes Advance Directives: No Mental Health Advance Directive: No Advance Directives on File: No Living Will: No Power of Rolling Machine Operator: No Advance Directives Reason:: Declines as Mental Health Visit. Risk Factors Assessment Male: Yes : No Do You Have Access To A Gun?: No Health Problems: No Mental Health Diagnoses: Yes Substance Use Disorders: Yes Previous Attempt: No Previous Psychiatric Hospitalization: Yes Hopelessness: No Smoker: Yes Protective Factors Assessment : No Responsible for Young Children: No Employed: No Stable Relationships: Yes Supportive Family: Yes Discharge Data Lab Results 06/24/21 06/24/21 06/24/21 20:35 20:35 20:35 WBC RBC Hgb Hct MCV MCH MCHC RDW Std Deviation RDW Coeff of Dony Plt Count MPV Immature Gran % (Auto) Neut % (Auto) Lymph % (Auto) Deuel % (Auto) Eos % (Auto) Baso % (Auto) Neut # (Auto) Lymph # (Auto) Deuel # (Auto) Eos # (Auto) Baso # (Auto) Immature Gran # (Auto) VBG pH VBG pCO2 VBG pO2 VBG HCO3 VBG O2 Saturation VBG Base Excess Carboxyhemoglobin Barometric Pressure Sodium Potassium Chloride Carbon Dioxide Anion Gap BUN Creatinine Est Cr Clr Drug Dosing Est GFR ( Amer) Est GFR (Non-Af Amer) BUN/Creatinine Ratio Glucose Fasting Glucose Calcium Total Bilirubin AST ALT Alkaline Phosphatase Total Creatine Kinase Total Protein Albumin Globulin Albumin/Globulin Ratio Triglycerides Cholesterol LDL Cholesterol, Calc VLDL Cholesterol, Calc HDL Cholesterol Cholesterol/HDL Ratio Lipase TSH Urine Color Yellow Urine Appearance Clear Urine pH 6.0 Ur Specific Spencer 1.008 Urine Protein 1+ H Urine Glucose (UA) Negative Urine Ketones 2+ H Urine Blood Negative Urine Nitrite Negative Urine Bilirubin Negative Urine Urobilinogen Negative Ur Leukocyte Esterase Negative Urine WBC (Auto) 0 Urine RBC (Auto) 0-4 U Hyaline Cast (Auto) 1-5 U Epithel Cells (Auto) 0-5 Urine Bacteria (Auto) Negative Salicylates Urine Opiates Screen Neg Ur Methadone, Qual Neg Acetaminophen Urine Barbiturates Neg Ur Phencyclidine (PCP) Neg U Amphetamin/Meth Scrn Neg MDMA (Ecstasy) Screen Neg U Benzodiazepines Scrn Neg Ur Cocaine Metabolite Neg U Marijuana (THC) Screen Pos H U Marijuana THC Carboxy 422 H Drug Screen Comment SEE NOTE Ethyl Alcohol mg/dL SARS-CoV-2, RNA, NAAT 06/24/21 06/24/21 06/24/21 21:07 21:07 21:07 WBC 11.28 H RBC 5.23 Hgb 17.1 Hct 47.7 MCV 91.2 MCH 32.7 MCHC 35.8 RDW Std Deviation 42.5 RDW Coeff of Dony 12.6 Plt Count 359 MPV 9.5 Immature Gran % (Auto) 0.2 Neut % (Auto) 62.6 Lymph % (Auto) 23.6 Deuel % (Auto) 13.1 Eos % (Auto) 0.1 Baso % (Auto) 0.4 Neut # (Auto) 7.06 H Lymph # (Auto) 2.66 Deuel # (Auto) 1.48 H Eos # (Auto) 0.01 Baso # (Auto) 0.05 Immature Gran # (Auto) 0.02 VBG pH VBG pCO2 VBG pO2 VBG HCO3 VBG O2 Saturation VBG Base Excess Carboxyhemoglobin Barometric Pressure Sodium 137 Potassium 3.5 Chloride 100 Carbon Dioxide 21 Anion Gap 16 H BUN 15 Creatinine 1.10 Est Cr Clr Drug Dosing 101.8 Est GFR ( Amer) 106.8 Est GFR (Non-Af Amer) 92.2 BUN/Creatinine Ratio 13.6 Glucose 89 Fasting Glucose Calcium 10.3 H Total Bilirubin 1.7 H AST 33 ALT 24 Alkaline Phosphatase 56 Total Creatine Kinase 600 H Total Protein 8.5 H Albumin 5.2 H Globulin 3.3 Albumin/Globulin Ratio 1.6 Triglycerides Cholesterol LDL Cholesterol, Calc VLDL Cholesterol, Calc HDL Cholesterol Cholesterol/HDL Ratio Lipase 6 L TSH Urine Color Urine Appearance Urine pH Ur Specific Spencer Urine Protein Urine Glucose (UA) Urine Ketones Urine Blood Urine Nitrite Urine Bilirubin Urine Urobilinogen Ur Leukocyte Esterase Urine WBC (Auto) Urine RBC (Auto) U Hyaline Cast (Auto) U Epithel Cells (Auto) Urine Bacteria (Auto) Salicylates Urine Opiates Screen Ur Methadone, Qual Acetaminophen Urine Barbiturates Ur Phencyclidine (PCP) U Amphetamin/Meth Scrn MDMA (Ecstasy) Screen U Benzodiazepines Scrn Ur Cocaine Metabolite U Marijuana (THC) Screen U Marijuana THC Carboxy Drug Screen Comment Ethyl Alcohol mg/dL < 10.0 SARS-CoV-2, RNA, NAAT 06/24/21 06/24/21 06/24/21 21:07 21:07 21:08 WBC RBC Hgb Hct MCV MCH MCHC RDW Std Deviation RDW Coeff of Dony Plt Count MPV Immature Gran % (Auto) Neut % (Auto) Lymph % (Auto) Deuel % (Auto) Eos % (Auto) Baso % (Auto) Neut # (Auto) Lymph # (Auto) Deuel # (Auto) Eos # (Auto) Baso # (Auto) Immature Gran # (Auto) VBG pH 7.46 H VBG pCO2 31 L VBG pO2 53 VBG HCO3 22 VBG O2 Saturation 89.5 VBG Base Excess -1.0 Carboxyhemoglobin 0.0 Barometric Pressure 737.0 Sodium Potassium Chloride Carbon Dioxide Anion Gap BUN Creatinine Est Cr Clr Drug Dosing Est GFR ( Amer) Est GFR (Non-Af Amer) BUN/Creatinine Ratio Glucose Fasting Glucose Calcium Total Bilirubin AST ALT Alkaline Phosphatase Total Creatine Kinase Total Protein Albumin Globulin Albumin/Globulin Ratio Triglycerides Cholesterol LDL Cholesterol, Calc VLDL Cholesterol, Calc HDL Cholesterol Cholesterol/HDL Ratio Lipase TSH 1.325 Urine Color Urine Appearance Urine pH Ur Specific Spencer Urine Protein Urine Glucose (UA) Urine Ketones Urine Blood Urine Nitrite Urine Bilirubin Urine Urobilinogen Ur Leukocyte Esterase Urine WBC (Auto) Urine RBC (Auto) U Hyaline Cast (Auto) U Epithel Cells (Auto) Urine Bacteria (Auto) Salicylates Urine Opiates Screen Ur Methadone, Qual Acetaminophen Urine Barbiturates Ur Phencyclidine (PCP) U Amphetamin/Meth Scrn MDMA (Ecstasy) Screen U Benzodiazepines Scrn Ur Cocaine Metabolite U Marijuana (THC) Screen U Marijuana THC Carboxy Drug Screen Comment Ethyl Alcohol mg/dL SARS-CoV-2, RNA, NAAT 06/24/21 06/24/21 06/27/21 21:08 Unknown 09:37 WBC RBC Hgb Hct MCV MCH MCHC RDW Std Deviation RDW Coeff of Dony Plt Count MPV Immature Gran % (Auto) Neut % (Auto) Lymph % (Auto) Deuel % (Auto) Eos % (Auto) Baso % (Auto) Neut # (Auto) Lymph # (Auto) Deuel # (Auto) Eos # (Auto) Baso # (Auto) Immature Gran # (Auto) VBG pH VBG pCO2 VBG pO2 VBG HCO3 VBG O2 Saturation VBG Base Excess Carboxyhemoglobin Barometric Pressure Sodium Potassium Chloride Carbon Dioxide Anion Gap BUN Creatinine Est Cr Clr Drug Dosing Est GFR ( Amer) Est GFR (Non-Af Amer) BUN/Creatinine Ratio Glucose Fasting Glucose 89 Calcium Total Bilirubin AST ALT Alkaline Phosphatase Total Creatine Kinase Total Protein Albumin Globulin Albumin/Globulin Ratio Triglycerides 114 Cholesterol 205 H LDL Cholesterol, Calc 136 VLDL Cholesterol, Calc 23 HDL Cholesterol 46 Cholesterol/HDL Ratio 4.5 Lipase TSH Urine Color Urine Appearance Urine pH Ur Specific Spencer Urine Protein Urine Glucose (UA) Urine Ketones Urine Blood Urine Nitrite Urine Bilirubin Urine Urobilinogen Ur Leukocyte Esterase Urine WBC (Auto) Urine RBC (Auto) U Hyaline Cast (Auto) U Epithel Cells (Auto) Urine Bacteria (Auto) Salicylates < 3.0 L Urine Opiates Screen Ur Methadone, Qual Acetaminophen < 3 L Urine Barbiturates Ur Phencyclidine (PCP) U Amphetamin/Meth Scrn MDMA (Ecstasy) Screen U Benzodiazepines Scrn Ur Cocaine Metabolite U Marijuana (THC) Screen U Marijuana THC Carboxy Drug Screen Comment Ethyl Alcohol mg/dL SARS-CoV-2, RNA, NAAT NEGATIVE Hospital Course (1) Psychotic disorder: (2) Schizophrenia: 2/11/22: ready for discharge, stable mood, no signs of EPS with discontinuation of scheduled cogentin. Completed his safety plan and reviewed it with staff. 07/02/21: continue risperidone, changing cogentin to prn as no further signs of EPS and previous odd gait more likely related to psychosis than EPS. He needs to complete a safety plan. 07/01/21: continue with risperidone and cogentin. Tapering cogetin tomorrow as no further signs of EPS. 06/30/21: continue with medications. motivational interviewing regarding plans for disposition and substance use. 06/29/21: Transition to risperidone monotherapy: 1mg qAM & 2mg qhs. Adding scheduled cogentin. 06/28/21: Continue cross-taper of zyprexa to risperidone. Reduce zyprexa to 2.5 mg qhs and increase risperidone to 2 mg qhs and continue with 1 mg qAM. 06/27/21: Start cross-taper from zyprexa to risperidone. If he refuses po medication will consider need for medication over objection. 06/26/21: continue Zyprexa trial with prns as ordered as significant improvement within 24 hours on medication. >35 min spent in testimony for 303 hearing/prep aside from his examination and coordination with treatment team. It is my opinion that if he were to refuse medications they should be given over objection as without treatment for his psychotic illness he is at significant risk of or serious disability within the next [address] Lemons to provide second opinion if needed. 06/25/21: The patient was admitted to the [facility] ([facility] mental health unit) on q15 min checks (behavioral with suicide precautions) for safety. The patient will participate in group, recreational, and milieu therapies and will be offered additional individual and family sessions as clinically appropriate. A MNPR is required given his level of paranoia and disorganization. Prn Haldol 5 mg and Ativan 1 mg are ordered and I am petitioning for a 303 hearing tomorrow as it is anticipated that he will require medications over objection if doesn't accept PO. Will offer Zyprexa zydus 10 mg this pm. He is not able to understand risks/benefits at this time. Will attempt fasting metabolic labs in the am. Post Discharge Appointments Primary Care Physician Name Of Family Doctor: [facility] Time of Appointment with PCP: Follow up as needed Provider Appointment Comment: [address], [place] [address] - Follow up as needed Other #1: Name of Aftercare Appointment: [facility] Phone Number of Aftercare Appointment: [phone] Aftercare Appointment Comment: Call for assistance with Medical Assistance application. #2: Name of Aftercare Appointment: [facility] Phone Number of Aftercare Appointment: [phone] Aftercare Appointment Comment: Please utilize as needed in crisis situations Contact Information Discharge Address: [place] Address: [address], [place] [address] Contact Information Comment: Mom's Address: [address], [address] [address], [place], [place] Discharge Plan Discharge Items Patient Disposition: Home - Self-Care Reason For Visit: psychotic disorder Discharge Diagnosis: Unspecified psychotic disorder Activity: Resume your previous activity Non-emergency contact: Primary Care Provider Call non-emergency contact if: you have any medication questions and your symptoms worsen Follow-up/Referrals: PCP,NO [Primary Care Provider] - Diet: Regular Addtl Attending Provider Instructions: SPECIAL CARE INSTRUCTIONS: 1. Follow through with your scheduled aftercare appointments. If unable to keep an appointment, please call to reschedule. 2. Take your medication only as prescribed. Medication should not be changed or stopped without the approval of your doctor. In the event of worsening symptoms or concerns about side effects, contact your doctor immediately. 3. Utilize new healthy coping skills, anger management skills, and stress management skills learned during your hospitalization. Journal feelings and process them with a support person. Identify stressors or situations that may result in relapse, deterioration or inappropriate behaviors and develop a plan to deal with those issues. 4. If your coping skills are ineffective and you are in crisis, contact your outpatient providers for direction. If unable to reach your providers, please call the [facility] Crisis Line [phone]. Other options are the [facility] CRISIS LINE AT , go to the [facility] walk-in center at [address], [place], or go to the closest Emergency Room. 5. Avoid alcohol and un-prescribed drugs. 6. You have been provided with the Mental Health Advance Directives Pamphlet for your review. 7. Your condition is stable for discharge to outpatient level of care, but recovery is an ongoing process. Ifthoughts to harm yourself or others return, follow the safety plan developed during your stay. Planning for a safe return home includes securing weapons. Our treatment team recommends weaponsbe removed from the home until your outpatient provider reassesses your progress. In rare cases where the items themselvescannot be removed, guns and ammunitionshould be secured separatelyand keys stored by a reliable personoutside of the home. If you were admitted on an involuntary commitment, the police or other legal authorities may be involved in this process. AFTERCARE APPOINTMENTS: * Please call your insurance company prior to your scheduled appointment to confirm your aftercare providers are covered. Take your insurance information to your appointments. *You have been provided with information regarding how to enroll in health insurance. Please contact [facility] [phone] WHO TO CALL AND WHEN: Medical Emergencies: For questions or emergencies related to your hospital stay, please contact the Inpatient Behavioral Health Unit at [phone]. A speech language assistant is on-call 13/12 for the Behavioral Health Unit for emergencies At any time you feel your situation is an emergency, you may also call 911 immediately. Pending Studies at Discharge: No Stand-Alone Forms: My [facility], Smoking Cessation Medications and DC Order Prescriptions: New benztropine 1 mg Tablet 1 mg PO BID PRN (Reason: muscle stiffness) 30 Days Qty: 60 RF: 0 risperidone 1 mg Tablet 1 mg PO QAM 30 Days Qty: 30 RF: 0 risperidone 2 mg Tablet 2 mg PO HS 30 Days Qty: 30 RF: 0 Discharge Orders: Discharge Order (Routine); Ordered 07/03/21 Ordered By: Dorothy Quiñonez/Other Patient Handouts: Journaling for Mental Health Admission Data Admit Date/Time: 06/25/21 10:23 Attending Provider: Sonya Corcoran Admit Provider: Sonya Corcoran Primary Care Provider: PCP,NO Other Interventions: Discharge Summary Assessment (RN) Last Done: 07/03/21 11:44 Coding Level of Care Code 93690 D/C day mgmt > 30 min Diagnoses Psychotic disorder F29 Schizophrenia F20.9 Time Spent (min) 40
== END 2021-07-03 13:20 | disposition home or self-care (01) | DRG 885 ==
LOC: ED 20:17 → 3S 06-25 10:23